=== PATIENT | female | born 1945 | race Caucasian/White ===

== ENCOUNTER 2016-12-22 20:37 | Outpatient (CLI) | payer MEDICARE, OTHER ==
[~2016-12-22] VITALS: Ht 165.1 cm; Wt 87.7 kg
--- NOTE | ~2016-12-22 | HEMODYNAMI ---
PATIENT:NURIA BARAJAS MEDICAL RECORD: [id number] : 41 [id number] AD[facility]ION DATE: 12/22/16 Generatedon:12/23/201616:24 Patient name: NURIA BARAJAS Patient #: [id number] : 1945 Date of study: 12/23/2016 Page: Of Hemodynamic Procedure Report Patient Data Patient Demographics Procedure consent was obtained First Name: NURIA Gender: Female Last Name: KARL : 1945 Middle Initial: A Age: 71 year(s) Patient #: [id number] Race: SSN: [id number] Additional ID: [id number] Contact details Address: [place] [address] State: [place] City: [place] Zip code: [address] Past Medical History Allergies Allergen Reaction Date Comments Reported Iodine 06/12/2015 Sulfa drugs 06/12/2015 Other allergy 06/12/2015 Levaquin Adhesive tape 06/12/2015 Admission Admission Data Admission Date: 12/22/2016 Admission Time: 20:37 Arrival Date: 12/22/2016 Arrival Time: 19:03 Admit Source: Other Insurance Payor: Medicare Weight (lbs.): 193 Weight (kg.): 87.54 Lab Results Lab Result Date: 12/23/2016 Lab Result Time: 0:00 Biochemistry Name Units Result Min Max BUN mg/dl 30 --(----)-* 7 18 Creatinine mg/dl 0.9 --(-*--)-- 0.6 1.3 CBC Name Units Result Min Max Hemoglobin g/dl 11.4 *-(----)-- 13.5 17.5 Procedure Procedure Types Cath Procedure Diagnostic Procedure [facility] w/Coronaries FFR/IVUS Intra-Coronary IVUS Initial PCI Procedure Coronary Stent Initial Miscellaneous Procedures Moderate Sedation up to 30 minutes Procedure Description Procedure Date Procedure Date: 12/23/2016 Procedure Start Time: 16:02 Procedure End Time: 16:20 Procedure Staff Name Function Narinder Aguilera MD Performing Physician Ivet Reardon RT Scrub Delonte Stallings RN Nurse Anel Zuniga RT Monitor Indication Angina Procedure Data Cath Procedure Fluoroscopy Diagnostic fluoroscopy Total fluoroscopy Time: 4.3 time: 4.3 min min Diagnostic fluoroscopy Total fluoroscopy dose: 775 dose: 775 mGy mGy Contrast Material Contrast Material Type Amount (ml) Isovue 370 87 Entry Location Entry Primary Successful Side Size Upsize Upsize Entry Closure Succes sful Closure Location (Fr) 1 (Fr) 2 (Fr) Remarks Device Remarks Femoral Right 5 Fr 6 Fr Exoseal artery Short Estimated blood loss: 5 ml Diagnostic catheters Device Type Used For End Catheter Placement Cordis 5Fr Pigtail LV Angiography Catheter (MP) Cordis 5Fr JL 4.0 Left Coronary Catheter (MP) Angiography Cordis 5Fr 3DRC Catheter Right Coronary (MP) Angiography Procedure Complications No complications Procedure Medications Medication Administration Route Dosage Oxygen NC 2 l/min Lidocaine 2% added to field 20 Heparin Flush Bag added to field 2 bags (1000units/500ml NS) 0.9% NaCl I.V. 100 ml/hr Solumedrol I.V. 125 mg Versed I.V. 2 mg Fentanyl I.V. 50 mcg Heparin Bolus I.V. 4000 units Versed I.V. 2 mg Fentanyl I.V. 50 mcg Versed I.V. 1 mg Fentanyl I.V. 50 mcg Plavix P.O. 75 mg Hemodynamics Rest HGB: 11.4 (g/dl) Heart Rate: 80 (bpm) Pressure Samples Time Site Value (mmHg) Purpose Heart Use Rate(bpm) 16:04 LV 179/11,12 Snapshot 86 Snapshots Pre Cath Intra NCS Post Cath Vital Signs Time Heart Resp SPO2 NIBP (mmHg) Rhythm Pain Sedation Rate (ipm) (%) Status Level (bpm) 15:41:13 86 13 98 162/103(140) NSR 0 (11) 10(A) , No pain 15:46:04 84 10 96 160/95(124) NSR 0 (11) 10(A) , No pain 15:50:24 82 21 96 171/105(147) NSR 0 (11) 10(A) , No pain 15:54:44 82 16 94 161/89(130) NSR 0 (11) 10(A) , No pain 15:59:06 83 15 95 158/91(130) NSR 0 (11) 10(A) , No pain 16:03:24 84 19 96 158/89(133) NSR 0 (11) 10(A) , No pain 16:07:40 80 9 95 143/82(118) NSR 0 (11) 10(A) , No pain 16:11:59 80 10 98 149/78(124) NSR 0 (11) 9(A) , No pain 16:16:06 84 9 89 119/79(114) NSR 0 (11) 9(A) , No pain 16:20:10 85 8 95 122/77(101) NSR 0 (11) 10(A) , No pain Medications Time Medication Route Dose Verified Delivered Reason Notes Effectiveness by by 15:43:44 Oxygen NC 2 Narinder Buffie used for l/min Willy Stallings RN procedure 15:44:52 Lidocaine 2% added 20ml Narinder Narinder for local to vial Willy Aguilera MD anesthetic field 15:44:58 Heparin Flush added 2 Narinder Narinder used for Bag to bags Willy Aguilera MD procedure (1000units/500ml field NS) 15:56:06 0.9% NaCl I.V. 100 Narinder Buffie Per physician ml/hr Willy Stallings RN 15:56:24 Solumedrol I.V. 125 Narinder Buffie Per physician mg Willy Stallings RN 16:02:30 Versed I.V. 2 mg Narinder Buffie for sedation Willy Stallings RN 16:02:35 Fentanyl I.V. 50 Narinder Buffie for sedation mcg Willy Stallings RN 16:08:00 Fentanyl I.V. 50 Narinder Buffie for sedation mcg Willy Stallings RN 16:08:56 Versed I.V. 2 mg Narinder Buffie for sedation Willy Stallings RN 16:11:52 Heparin Bolus I.V. 4000 Narinder Buffie for verifi ed units Willy Stallings RN anticoagulation with dr aguilera 16:15:40 Versed I.V. 1 mg Narinder Buffie for sedation Willy Stallings RN 16:15:44 Fentanyl I.V. 50 Narinder Buffie for sedation mcg Willy Stallings RN 16:23:58 Plavix P.O. 75 mg Narinder Buffie for Tauth MD Stallings RN antiplatelet therapy Procedure Log Time Note 15:15:55 Ivet Reardon RT(R) sent for patient. Start room use. 15:20:06 Informed consent obtained and on chart 15:24:06 Lab Result : BUN 30 mg/dl 15:24:06 Lab Result : Hemoglobin 11.4 g/dl 15:24:06 Lab Result : Creatinine 0.9 mg/dl 15:24:11 Diagnostic Cath Status : Elective 15:24:31 Indication : Angina 15:27: Time tracking: Regular hours 15:27:07 Plan of Care:Hemodynamics will remain stable., Cardiac rhythm will remain stable., Comfort level will be maintained., Respiratory function will remain adequate., Patient/ family verbilizes understanding of procedure., Procedure tolerated without complication., Recovers from procedure without complications.. 15:29:51 Patient received from ED to CCL 2 Alert and oriented. Tansferred to table in Supine position. 15:29:52 Warm blankets applied, and julia hugger turned on for patient comfort. 15:29:53 Correct patient and procedure confirmed by team. 15:29:54 ECG and BP/O2 sat monitors applied to patient. 15:40:02 Baseline sample Acquired. 15:40:02 Vital chart was started 15:40:06 Rhythm: sinus rhythm 15:40:08 Full Disclosure recording started 15:40:19 H&P Date Dictated: 12/23/2016 New H&P dictated by physician.. 15:40:21 Pre-procedure instructions explained to patient. 15:40:21 Pre-op teaching completed and patient verbalized understanding. 15:40:22 Family in waiting room. 15:40:23 Patient NPO since Midnight. 15:40:32 Is the patient allergic to Iodine/contrast media? No. 15:40:34 Was the patient premedicated? No 15:40:35 Is patient on blood thinner?Yes 15:40:45 ACC The patient was administered the following blood thiners within the last 24 hours: ACCPlavix 15:41:08 Patient Weight : 87.54 kg 15:41:53 Patient diabetic? Yes. 15:41:54 If diabetic: On Metformin? Yes 15:41:58 If on Metformin: Last Dose? 12/22/2016 15:42:00 Previous problem with sedation/anesthesia? No ? 15:42:02 Snore? Yes 15:42:02 Sleep apnea? No 15:42:03 Deviated septum? No 15:42:04 Opens mouth fully? Yes 15:42:05 Sticks out tongue? Yes 15:42:07 Airway obstruction? No ? 15:42:09 Dentures? No ? 15:42:12 Pre procedure: right dorsailis pedis pulse 1+ Palpable, but thready & weak; easily obliterated 15:42:15 Patient pain scale 0/10 ?. 15:42:19 IV patent on arrival in left forearm with 0.9% NaCl at [facility]. 15:42:23 Lab results completed and on chart. 15:42:28 Right groin area was prepped with chlora-prep and draped in sterile fashion 15:42:30 Alarms reviewed by R. N. 15:42:30 Sharps counted by scrub and verified by R.N. 15:43:44 Oxygen 2 l/min NC was administered by Delonte Stallings RN; used for procedure; 15:44:52 Lidocaine 2% 20ml vial added to field was administered by Narinder Aguilera MD; for local anesthetic; 15:44:58 Heparin Flush Bag (1000units/500ml NS) 2 bags added to field was administered by Narinder Aguilera MD; used for procedure; 15:52:48 IV infiltrated; restarted in left hand by Delonte Stallings 15:56:06 0.9% NaCl 100 ml/hr I.V. was administered by Delonte Stallings RN; Per physician; 15:56:24 Solumedrol 125 mg I.V. was administered by Delonte Stallings RN; Per physician; 15:59:00 Physician arrived 15:59:01 --------ALL STOP TIME OUT------ 15:59:01 Final Timeout: patient, procedure, and site verified with staff and physician. All members of the team are in agreement. 15:59:03 Right groin site verified by team. 15:59:07 Physical assessment completed. ASA score P 2 - A patient with mild systemic disease as per Narinder Aguilera MD. 15:59:12 Sedation plan: IV Moderate Sedation Versed, Fentanyl 15:59:22 Use device set Femoral Dx 15:59:23 Acist Syringe opened to sterile field. 15:59:24 Bag Decanter opened to sterile field. 15:59:24 Medline Cath Pack opened to sterile field. 15:59:25 Terumo 5Fr [place] Sheath opened to sterile field. 15:59:25 St Abhishek 260cm J .035 wire opened to sterile field. 15:59:27 Acist Hand Control opened to sterile field. 15:59:27 Acist Manifold opened to sterile field. 15:59:28 Diagnostic Infinity 5Fr Multipack catheter opened to sterile field. 15:59:28 Tegaderm 4 x 4 opened to sterile field. 16:02:30 Versed 2 mg I.V. was administered by Delonte Stallings RN; for sedation; 16:02:35 Fentanyl 50 mcg I.V. was administered by Delonte Stallings RN; for sedation; 16:02:47 Procedure started. 16:02:50 Local anesthetic to right femoral artery with Lidocaine 2% by Narinder Aguilera MD.INITIAL ACCESS ONLY 16:03:02 A 5 Fr sheath was inserted into the Right Femoral artery 16:03:21 A Cordis 5Fr Pigtail Catheter (MP) was advanced over the wire and used for LV Angiography. 16:04:15 LV hemodynamics recorded. 16:04:16 LV gram done using DELVALLE 16:04:19 Injector settings: Ml/sec: 5, Volume: 15, 16:04:25 EF : 55 % 16:04:28 Catheter removed. 16:04:41 A Cordis 5Fr JL 4.0 Catheter (MP) was advanced over the wire and used for Left Coronary Angiography. 16:05:11 LCA angiography performed. 16:05:14 Injector settings: Ml/sec: 3, Volume: 6, 16:06:50 Catheter removed. 16:06:56 A Cordis 5Fr 3DRC Catheter (MP) was advanced over the wire and used for Right Coronary Angiography. 16:07:01 RCA angiography performed. 16:07:04 Injector settings: Ml/sec: 3, Volume: 6, 16:07:45 Catheter removed. 16:08:00 Fentanyl 50 mcg I.V. was administered by Delonte Stallings RN; for sedation; 16:08:22 Merit BasixCompak Inflation Kit opened to sterile field. 16:08:23 Terumo 6Fr [place] Sheath opened to sterile field. 16:08:23 Isaacs Whisper J 300cm 0.014 guide wire opened to sterile field. 16:08:29 Proceeding to intervention. 16:08:56 Versed 2 mg I.V. was administered by Delonte Stallings RN; for sedation; 16:09:08 St Abhishek 260cm J .035 wire opened to sterile field. 16:11:24 Medtronic Launcher 6Fr 3DRC guide catheter opened to sterile field. 16:11:37 Sheath upsized to a 6 Fr Short. 16:11:52 Heparin Bolus 4000 units I.V. was administered by Delonte Stallings RN; for anticoagulation; verified with dr aguilera 16:12:03 6 Fr 3drc guide catheter was inserted over the wire 16:12:08 whisper wire advanced. 16:12:14 IVUS catheter advanced over wire. 16:13:06 IVUS pass to RCA lesion performed. 16:15:33 IVUS catheter removed over wire. 16:15:40 Versed 1 mg I.V. was administered by Delonte Stallings RN; for sedation; 16:15:44 Fentanyl 50 mcg I.V. was administered by Delonte Stallings RN; for sedation; 16:16:12 Inflation Number: 1 A EventWithtronic Integrity 3.5 X 18 stent was prepped and advanced across the Prox RCA. The stent was deployed at 13 KENDRICK for 0:10 (min:sec). 16:17:03 Stent catheter was removed intact over wire. 16:17:04 Wire removed. 16:17:04 Guide catheter removed. 16:17:13 Cordis 6Fr Exoseal opened to sterile field. 16:19:07 Sheath removed intact; hemostasis achieved with Exoseal to the Right Femoral artery. 16:19:09 Procedure ended.(Physican Out) 16:19:31 Fluoroscopy time 04.30 minutes. 16:19:35 Flurop Dose total: 775 16:19:35 Fluoroscopy dose: 775 mGy 16:19:43 Contrast amount:Isovue 370 87ml. 16:19:45 Sharps counted by scrub and verified by R.N. 16:19:46 Insertion/operative site no bleeding no hematoma. 16:19:49 Post-op/insertion site Right Femoral artery dressed using a 4 x 4 and Tegaderm. 16:19:51 Post right femoral artery:stable 16:19:53 Post Procedure Pulses reassessed and unchanged 16:19:55 Post procedure rhythm: unchanged. 16:19:58 Estimated blood loss: 5 ml 16:19:59 Post procedure instruction explained to patient.Patient verbalizes understanding. 16:20:00 Patient needs reinforcement of post procedure teaching. 16:20:20 Procedure type changed to Cath procedure, Diagnostic procedure, LHC, LHC w/Coronaries, FFR/IVUS, Intra-Coronary IVUS Initial, PCI procedure, Coronary Stent Initial, Miscellaneous Procedures, Moderate Sedation up to 30 minutes 16:20:22 Procedure and supply charges have been captured, reviewed, submitted and are correct. 16:20:27 Procedure Complication : No complications 16:20:31 Vital chart was stopped 16:20:31 See physician's report for complete and final results. 16:20:34 Report given to Pre/Post Procedure Room. 16:20:38 Patient transfered to Pre/Post Procedure Room with Stretcher. 16:20:43 Procedure ended. 16:20:43 Full Disclosure recording stopped 16:20:50 ACC-PCI Only Patient was given prescriptions, or instructed by Narinder Aguilera MD to start/continue the following medications upon discharge: Plavix 16:20:51 End room use (Document Last) 16:23:58 Plavix 75 mg P.O. was administered by Delonte Stallings RN; for antiplatelet therapy; 16:24:09 [place] Fromberg Eagleye IVUS Catheter opened to sterile field. Intervention Summary Intervention Notes Time ActionType Lesion and Equipment Action# Pressure Duration Attributes Used 16:16:12 Place stent Prox RCA Medtronic 1 13 00:10 Integrity 3.5 X 18 stent Device Usage Item Name Manufacture Quantity Catalog Hospital Part Current Minimal L ot# / Number Charge Number Stock Stock Serial# Code Acist Acist 1 17267 647509 842107 922140 20 Syringe Medical Systems Inc Bag Microtek 1 2002S 365826 54245 570213 5 Aito BV Inc. Medline Cardinal 1 [id number] 746772 82345 073019 5 Calester Terumo 5Fr Terumo 1 QDE122 851689 573061 846300 [address] Abhishek 2 677137 745825 660349 690355 30 260cm J .035 wire Acist Hand Acist 1 93976 544731 567265 347516 5 Control Medical Systems Inc Acist Acist 1 19766 087873 382848 950077 5 [facility] Biosynthetic Technologies Systems Inc Diagnostic Cardinal 1 [id number] 795930 56790 864875 30 Infinity Health 5Fr Multipack catheter Tegaderm 4 3M 1 1626W 796512 449680 977984 5 x 4 Cordis 5Fr Cardinal 1 407594 5 Pigtail Health Catheter (MP) Cordis 5Fr Cardinal 1 813918 5 JL 4.0 Health Catheter (MP) Cordis 5Fr Cardinal 1 608381 5 3DRC Health Catheter (MP) [facility] 1 [id number] 266679 510272 210530 15 L[employer] Medical Inflation Kit Terumo 6Fr Terumo 1 [id number] 546562 950582 694587 40 [place] Sheath Isaacs Isaacs 1 [id number] 134570 994208 647570 5 Whisper J Vascular 300cm 0.014 guide wire Medtronic Medtronic 1 [id number] 286937 573624 070558 1 Launcher 6Fr 3DRC guide catheter Medtronic Medtronic 1 [id number] 478597 814973 1 0 [id number] Integrity 3.5 X 18 stent Cordis 6Fr Cardinal 1 EX600 655755 830367 812471 10 Permabit Technology [facility] 1 [id number] 395643 883357 770939 8 Fromberg Eagleye IVUS Catheter Signature Audit [place] Stage Time Signature Unsigned Intra-Procedure 12/23/2016 Anel Zuniga 4:24:47 PM RT(R) Signatures Monitor : Anel Zuniga RT Signature : Date : Time : [facility] [address], [place] [address]
[2016-12-22 19:45] LABS: BASOPHILS 0.2 % (0.0-2.0); HEMATOCRIT 34.6 % (36.0-48.0); HEMOGLOBIN 11.4 g/dL (12-16); IMMATURE GRANULOCYTES 0.1 % (0-5); LYMPHOCYTES 25.5 % (15-50); MCH 28.2 pg (26.0-34.0); MCHC 32.9 g/dL (31.0-37.0); MCV 85.6 fL (80.0-100.0); MEAN PLATELET VOLUME 9.6 fL (7.4-10.4); MONOCYTES 7.4 % (2-11); NEUTROPHILS 63.8 % (40-80); PLATELET COUNT 298 10x3/uL (130-400); RBC 4.04 10x6/uL (4.00-5.40); RDW 14.8 % (11.5-14.5); WBC 8.3 10x3/uL (4.8-10.8)
[2016-12-22 20:21] LABS: ALT (SGPT) 36 U/L (10-68); CALC OSMOLALITY 291 mosm/kg (275-300); CALCIUM 9.8 mg/dL (8.5-10.1); CARBON DIOXIDE 26.4 mmol/L (21.0-32.0); CHLORIDE - SERUM 98 mmol/L (98-107); CHOLESTEROL, TOTAL 310 mg/dL (0-200); CKMB 2.2 U/L (0.0-3.6); CREATINE KINASE 86 UL (21-215); CREATININE - SERUM 0.9 mg/dL (0.6-1.3); GLUCOSE 248 mg/dL (74-106); HDL CHOLESTEROL 31 mg/dL (32-96); LDL CHOLESTEROL 227 mg/dL (0-100); LDL-HDL RATIO 7.3 ratio (1.5-3.5); POTASSIUM - SERUM 4.4 mmol/L (3.5-5.1); PROTEIN - SERUM 7.6 g/dL (6.4-8.2); SODIUM 139 mmol/L (136-145); TRIGLYCERIDE 264 mg/dL (30-200); TROPONIN-I < 0.017 ng/mL (0.000-0.060); UREA NITROGEN 30 mg/dL (7-18); eGFR NON AFRICAN AMERICAN 65 mL/min (90-120)
[~2016-12-22 20:37] MED LIST: ACIPHEX20 MG PO; ANTIVERT25 MG PO; BAYER CHEWABLE81 MG PO; CARDIZEM CD240 MG PO; CLEOCIN HCL300 MG PO; FISH OIL 1,0001 CA1 PO; GLIMEPIRIDE1 MG PO; GLUCOPHAGE1000 MG PO; HYDROCODONE-APA1 TAB PO; ISORDIL5 MG PO; MACROBID100 MG PO; MAG-OX 400 MG400 MG PO; MEDROL DOSE PACK4 MG PO; NITROSTAT0.4 MG SL; NORCO 10/325 TA1 TA1 PO; ONGLYZA5 MG PO; PLAVIX75 MG PO; PREDNISONE20 MG PO; PROAIR HFA8.5 GM INH; TAZTIA XT360 MG PO; XANAX0.5 MG PO; ZESTORETIC 20/11 TAB PO; ZETIA10 MG PO; ZOFRAN4 MG PO; ZYLOPRIM300 MG PO
[2016-12-22 21:01] LABS: AMYLASE - SERUM 27 U/L (25-115); LIPASE 273 U/L (73-393); PRO BNP 80 pg/mL (0-125)
[2016-12-22 21:04] LABS: ALKALINE PHOSPHATASE 105 U/L (46-116); BILIRUBIN - TOTAL 0.23 mg/dL (0.2-1.3)
[2016-12-23 07:30] VITALS: BP 174/83; Ht 165.1 cm; Wt 87.7 kg
[2016-12-23 07:54] VITALS: BP 137/57
--- NOTE | 2016-12-23 08:00 | NUR ---
PATIENT IS AWAKE AND ALERT, ABLE TO RELAY HER NEEDS. DR. GUEVARA HAS BEEN IN TO SEE HER. SHE HAS ALLERGY TO CONTRAST. WILL PREMEDICATE.
[2016-12-23 10:55] VITALS: BP 166/77
[2016-12-23 13:55] VITALS: BP 174/83
[2016-12-23] MEDS ORDERED: PROTONIX20 MG PO (14:36)
[2016-12-23] MEDS ORDERED: MAG-OX 400 MG400 MG PO (14:38)
[2016-12-23] MEDS ORDERED: FISH OIL 1,0001 CA1 PO (14:38)
[2016-12-23] MEDS ORDERED: GLUCOPHAGE1000 MG PO (14:39)
[2016-12-23] MEDS ORDERED: LEVEMIR100 U/M1 SC (14:39)
[2016-12-23] MEDS ORDERED: FLUTICASONE PRO16 GM NASAL ×2 (14:41)
--- NOTE | 2016-12-23 15:20 | NUR ---
DISCUSSED CONSENT PAPERWORK. PATIENT GIVES CONSENT BUT IS ADAMENT THAT SHE DOESN'T WANT A PACEMAKER.
--- NOTE | 2016-12-23 17:01 | NUR ---
RECEIVED PT FROM WORKFORCE SPECIALIST. NO CO PAIN AT THIS TIME. AOX4. FAMILY AT BEDSIDE.. 78 SR PER MACHINE PRESSER.
--- NOTE | 2016-12-23 19:23 | NUR ---
PT IS ALERT. ASSESSMENT DONE PER FLOWSHEET. NO OTHER NEEDS AT THIS TIME. WILL CONTINUE TO MONTIOR.
[2016-12-23 20:00] VITALS: BP 166/74
[2016-12-24] VITALS: BP 128/60
--- NOTE | 2016-12-24 00:28 | NUR ---
PT SLEEPING. APPEARS COMFORTABLE. NO DISTRESS NOTED. RESP EVEN AND UNLABORED. FAMILY IN ROOM. CALL LIGHT WITH IN REACH. WILL CONT. TO MONITOR.
--- NOTE | 2016-12-24 00:37 | NUR ---
PT AWAKEN BY EXHAUST WORKER FOR VS. NURSE ASSESSED CATH SITE, TO RT GROIN. DRESSING CLEAN DRY AND INTACT. NO S/S OF BLEEDING OR HEMATOMA. RT PEDAL PULSE PALPABLE.
[2016-12-24 04:00] VITALS: BP 145/69
--- NOTE | 2016-12-24 06:31 | NUR ---
PT AMBULATING AROUND ROOM. A/O. DRESSING TO RT GROIN REMAINS WNL. NO S/S OF HEMATOMA OR BLEEDING. PT REQUEST FRESH WATER. PT TO D/C THIS AM AT 0800. PT WAS NOT GIVEN ANY RX THERE IS NOT AN RX ON CHART. NO F/U APPT NOTED. PT STATES SHE DOES NOT REMEMBER SEEING DR. GUEVARA AT ALL SINCE HER HEART CATH.
[2016-12-24 08:17] VITALS: BP 148/67
--- NOTE | 2016-12-24 08:58 | NUR ---
PT IS ALERT. ASSESMENT DONE PER FLOWSHEET. NO OTHER NEEDS AT THIS ITME. WILL CONTINUE EDWIGE ONITOR.
--- NOTE | 2016-12-29 14:38 | OP ---
PATIENT NAME: NURIA BARAJAS MEDICAL RECORD: [id number] :41 LOCATION:[facility] ADMISSION DATE: SURGEON: ANTONIETA GUEVARA MD DATE OF OPERATION: 12/23/2016 PROCEDURES: 1. PTCA stent of the RCA. 2. Intravascular ultrasound of the RCA. 3. Left heart catheterization. 4. Selective coronary angiography. 5. Left ventriculogram. INDICATION: Angina and coronary artery disease. PROCEDURE IN DETAIL: After informed consent was obtained and after a detailed explanation of the risks, benefits as well as alternative therapies. The patient elected to proceed with angiogram and angioplasty. The right femoral area was prepped and draped in normal sterile fashion. The right femoral artery was cannulated via modified Seldinger technique with placement of 6-Frisian sheath. All catheters exchanged through this sheath. FINDINGS: Left ventriculogram was performed in standard 30-degree DELVALLE view, reveals good cardiac wall motion throughout all segments. Overall ejection fraction estimated at 60%. SELECTIVE CORONARY ANGIOGRAPHY: 1. Left main is with no significant angiographic disease. 2. Left anterior descending has moderate irregularities, but no flow-limiting stenosis. Previously placed stents are widely patent. 3. Left circumflex has moderate irregularities, but no flow-limiting stenosis. Previously placed stents were widely patent. 4. Right coronary has an 80% stenosis confirmed by intravascular ultrasound proximally. PTCA STENT OF THE RIGHT CORONARY: The stent used was 3.5 x 18 mm Integrity. Result was 0% residual stenosis. OVERALL IMPRESSION: Successful percutaneous transluminal coronary angioplasty stent of the right coronary artery going from 80% initial stenosis to 0% residual stenosis. TRANSINT:[id number] Voice Confirmation ID: [id number] DOCUMENT ID: [id number] ANTONIETA GUEVARA MD at 1438 CC: [id number] DICTATION DATE: 12/23/16 1620 SALES TRAINING REPRESENTATIVE: 12/24/16 0102 DEP CLI 12/24/16 [id number] [place] [address]
--- NOTE | 2016-12-29 14:38 | HP ---
PATIENT: NURIA PATRICK MEDICAL RECORD: [id number] ACCOUNT: [id number] LOCATION:[facility] : 41 ADMISSION DATE: 12/22/16 HISTORY AND PHYSICAL EXAMINATION DIAGNOSES: 1. Unstable angina. 2. Coronary artery disease. 3. Status post multivessel percutaneous transluminal coronary angioplasty stent. 4. CONTRAST ALLERGY. 5. Hypertension. 6. Hyperlipidemia. HISTORY OF PRESENT ILLNESS: Mrs. Patrick presents with 3 days of increasing anginal chest discomfort. Her troponin is normal. She continues to have the angina. Her last cardiac intervention was 2 years ago. PHYSICAL EXAMINATION: GENERAL APPEARANCE: Well-nourished, well-developed, appears stated age. Level of distress, comfortable. PSYCHIATRIC: Mental status, alert, normal affect. Orientation, oriented to time, place and person. EYES: Lids and conjunctiva, noninjected. No discharge, no pallor. ENT: Lips, teeth, gums, normal dentition. Oropharynx, no cyanosis, no pallor. NECK: Carotid arteries, bilateral normal upstroke, no bruits, no thrills. JUGULAR VEINS: No jugular venous pressure or distention. CERVICAL LYMPH NODES: Nontender, nonenlarged. THYROID: Not enlarged. Nontender. No nodules. LUNGS: Respiratory effort, unlabored. CHEST: Normal curvature. No thoracic deformity. No chest wall tenderness. Percussion, resonant. Auscultation, clear. No wheezes, no rales, no rhonchi. CARDIOVASCULAR: Precordial exam, nondisplaced. No heaves or pericardial thrills. Rate and rhythm, regular. Heart sounds, normal S1, normal S2. No S3, no gallop, no rub. Systolic murmur, not heard. Diastolic murmur, not heard. EXTREMITIES: No cyanosis, no edema. Peripheral pulses, full and equal in all extremities, except as noted. No bruits appreciated. ABDOMEN: Soft, nondistended. Normal aorta. No bruit. Nontender. No masses. Liver, nontender, no hepatomegaly. Spleen, nontender, no splenomegaly. MUSCULOSKELETAL: No joint tenderness. No joint swelling. No erythema. NEUROLOGICAL: Normal gait, normal strength, normal tone. SKIN: Warm and dry. REVIEW OF SYSTEMS: The patient reports easy bruising but reports no swollen glands. The patient reports no fever, no night sweats, no significant weight gain, no significant weight loss. No significant exercise tolerance. The patient reports no dry eyes, no irritation, no vision change. Patient reports no difficulty hearing and no ear pain. Patient reports no frequent nose bleeds or nose and sinus problems. Patient reports on arm pain on exertion. No shortness of breath while lying down. No history of heart murmur. Patient reports no cough, no wheezing or coughing up blood. Patient reports no abdominal pain, no vomiting. Normal appetite. No diarrhea and not vomiting blood. No nausea and no constipation. Patient reports no incontinence. No difficulty urinating. No hematuria. No increased frequency. Patient reports no muscle aches. No weakness, no arthralgias, no back pain. No swelling of the HISTORY AND PHYSICAL [id number] NURIA PATRICK extremities. Patient reports no abnormal mole, no jaundice, no rashes. Reports no loss of consciousness. No weakness and no numbness. No seizures, dizziness, or headaches. The patient reports no depression, no sleep disturbance, feeling safe in a relationship and no alcohol abuse. Patient reports on fatigue. Reports no runny nose or sinus pressure. No itching, no hives, and no frequent sneezing. OVERALL IMPRESSION: Unstable angina, escalating fashion, most likely she has recurrent hemodynamically significant coronary artery disease. We will proceed with coronary angiography. Further care depends upon findings of the chart. TRANSINT:[id number] Voice Confirmation ID: [id number] DOCUMENT ID: [id number] ANTONIETA GUEVARA MD at 1438 CC: [id number] DICTATION DATE: 12/23/16 08 BOTTOM BUFFER: 12/23/16 0851 DEP CLI 12/24/16 [address] [place] [address]
== END 2016-12-24 10:06 | disposition home or self-care (01) ==
LOC: D.OPS 20:37 → D.M2 20:37 → EDSTATUS 12-23 11:30 → D.M2 12-23 16:50 → D.OPS 12-24 10:06
PROVIDERS: Family Medicine
DX: I25.110 Atherosclerotic heart disease of native coronary artery with unstable angina pectoris (principal); I10 Essential (primary) hypertension; E78.5 Hyperlipidemia, unspecified; Z95.5 Presence of coronary angioplasty implant and graft; Z91.041 Radiographic dye allergy status; Z79.899 Other long term (current) drug therapy

== ENCOUNTER 2017-05-17 18:47 | Observation (INO) | payer MEDICARE, OTHER ==
[~2017-05-17] VITALS: Ht 165.1 cm; Wt 83.9 kg
--- NOTE | ~2017-05-17 | EC ---
PATIENT:NURIA BARAJAS DATE OF SERVICE: 05/17/17 SEX: F MEDICAL RECORD: [id number] DATE OF : 41 LOCATION:D. D.212 AGE OF PATIENT: 72 ADMISSION DATE: 05/17/17 REFERRING PHYSICIAN: INTERPRETING PHYSICIAN: ANTONIETA AGUILERA MD ECHOCARDIOGRAM REPORT ECHO CHARGES 4 ECHO COMPLETE CLINICAL DIAGNOSIS: DIZZINESS,CHILLS HX OF CAD/STENTS/HTN ECHOCARDIOGRAPHIC MEASUREMENTS (adult normal given) AC root (d.<3.7cm) 3.5 cm LV Septum d (<1.2 cm> 1.5 cm Valve Excursion 1.6 cm LV Septum (systole) 2.1 cm Left Atria (s.<4.0cm> 4.8 cm LVPW d(<1.2cm) 1.7 cm RV (d.<2.3cm) 4.0 cm LVPW (sytole) 2.0 cm LV diastole(<5.6CM) 5.1 cm MV E-F(>70mm/sec) cm LV systole 4.0 cm LVOT Diameter 1.9 cm MV exc.(>10mm) 1.6 cm Est.ejection fraction (50-75%) % Pericardial Effusion N DOPPLER: LVIT cm/sec A 98.0 cm/sec E 72.0 cm/sec LA cm/sec RVSP 32 mmHg LVOT 130 cm/sec AOP1/2T m/s Asc. Ao 162 cm/sec RVOT 100 cm/sec RA cm/sec PA 127 cm/sec AV Gradient Peak 10.50mmHg AV Mean 4.79 mmHg AV Area 2.6 cm MV Gradient Peak 4.52 mmHg MV Mean 1.42 mmHg MV Area cm COMMENTS: Framing Mechanic: Cristo KERN Brick Pitcher: 1 Dr. Aguilera TAPE# PACS DATE OF SERVICE: 05/18/2017 Echocardiogram FINDINGS: 1. Left ventricular chamber size is within normal limits. Left ventricular systolic function is normal. Overall ejection fraction estimated at 60%. 2. Left atrium is enlarged at 4.8 cm. Right atrium and right ventricular chamber sizes are as well mildly dilated. 3. Valvular structures have normal structure and motion. ECHOCARDIOGRAM REPORT [id number] NURIA BARAJAS 4. Doppler interrogation reveals mild mitral regurgitation, mild tricuspid regurgitation, no other valvular insufficiency or stenosis. Pulmonary systolic pressure is within normal limits, estimated at 32 mmHg. 5. No evidence of pericardial effusion or left ventricular thrombus. TRANSINT:[id number] Voice Confirmation ID: [id number] DOCUMENT ID: [id number] ANTONIETA AGUILERA MD CC: [id number] DICTATION DATE: 05/19/17 1149 CERTIFIED PHARMACIST ASSISTANT: 05/19/17 1425 DIS IN 05/18/17 [facility] [address] [id number]
[~2017-05-17 18:47] MED LIST changes: +FLUTICASONE PRO16 GM NASAL; +LEVEMIR100 U/M1 SC; +PROTONIX20 MG PO
[2017-05-17 19:37] LABS: BASOPHILS 0.3 % (0-2); EOSINOPHILS 5.2 % (0-7); HEMATOCRIT 34.5 % (36.0-48.0); HEMOGLOBIN 11.4 g/dL (12-16); IMMATURE GRANULOCYTES 0.3 % (0-5); LYMPHOCYTES 22.8 % (15-50); MCH 27.9 pg (26.0-34.0); MCV 84.4 fL (80.0-100.0); MEAN PLATELET VOLUME 9.2 fL (7.4-10.4); MONOCYTES 9.1 % (2-11); NEUTROPHILS 62.3 % (40-80); PLATELET COUNT 304 10x3/uL (130-400); RBC 4.09 10x6/uL (4.00-5.40); RDW 14.8 % (11.5-14.5); WBC 7.3 10x3/uL (4.8-10.8)
[2017-05-17 20:25] LABS: ALBUMIN 3.7 g/dL (3.4-5.0); ALKALINE PHOSPHATASE 87 U/L (46-116); ALT (SGPT) 56 U/L (10-68); CALC OSMOLALITY 275 mosm/kg (275-300); CARBON DIOXIDE 30.5 mmol/L (21.0-32.0); CHLORIDE - SERUM 99 mmol/L (98-107); CREATININE - SERUM 0.9 mg/dL (0.6-1.3); POTASSIUM - SERUM 4.1 mmol/L (3.5-5.1); PROTEIN - SERUM 7.4 g/dL (6.4-8.2); SODIUM 135 mmol/L (136-145); UREA NITROGEN 15 mg/dL (7-18); eGFR NON AFRICAN AMERICAN 65 mL/min (90-120)
[2017-05-17 20:35] LABS: GLUCOSE 185 mg/dL (74-106)
[2017-05-17 20:56] LABS: CHOL - HDL RATIO 4.8 ratio (2.3-4.1); CHOLESTEROL, TOTAL 176 mg/dL (0-200); CKMB 3.3 U/L (0.0-3.6); CREATINE KINASE 124 UL (21-215); HDL CHOLESTEROL 37 mg/dL (32-96); LDL CHOLESTEROL 119 mg/dL (0-100); LDL-HDL RATIO 3.2 ratio (1.5-3.5); MAGNESIUM - SERUM 1.8 mg/dL (1.8-2.4); TRIGLYCERIDE 103 mg/dL (30-200)
[2017-05-17 21:01] LABS: TROPONIN-I < 0.017 ng/mL (0.000-0.060)
[2017-05-17 21:15] LABS: APPEARANCE HAZY (CLEAR); BILIRUBIN NEGATIVE (NEGATIVE); COLOR YELLOW (YELLOW); GLUCOSE NEGATIVE (NEGATIVE); KETONE NEGATIVE (NEGATIVE); LEUKOCYTE ESTERASE TRACE (NEGATIVE); NITRITE POSITIVE (NEGATIVE); PROTEIN NEGATIVE (NEGATIVE); UROBILINOGEN NORMAL (NORMAL)
[2017-05-17 21:16] LABS: RED CELLS - URINE OCC /hpf (0-5); WHITE CELLS - URINE 0-5 /hpf (0-5)
[2017-05-17 21:17] LABS: BACTERIA MANY /hpf (NONE SEEN); EPITHELIAL CELLS OCC /hpf (0-5)
--- NOTE | 2017-05-17 22:53 | NUR ---
RECEIVED REPORT FROM ADMANDA IN ER, PT ADMITTED FOR CHEST PAIN-DIZZY-, TELEMTRY PLACED ON PT, IV-RAC, BED IS LOW, SRX2, CALL LIGHT IN REACH, DAUGHTER AT BEDSIDE, VITALS ARE STABLE, WILL CONTINUE TO MONITOR
[2017-05-17 23:07] LABS: CKMB 2.8 U/L (0.0-3.6); CREATINE KINASE 104 UL (21-215)
[2017-05-17 23:09] LABS: TROPONIN-I < 0.017 ng/mL (0.000-0.060)
--- NOTE | 2017-05-17 23:45 | NUR ---
ADMISSION ASSESSMENT COMPLETED. PT RESTING WITH NO DISTRESS.
[2017-05-18 01:36] VITALS: BP 164/99
--- NOTE | 2017-05-18 03:07 | NUR ---
PT RESTING IN ROOM WITH NO DISTRESS. RESPS EVEN/NONLABORED. NO DISTRESS.
--- NOTE | 2017-05-18 04:11 | NUR ---
ASSISTED PT TO RESTROOM, BACK IN BED, DENIES ANY NEEDS, BED IS LOW, SRX2, CALL LIGHT IN REACH, WILL CONTINUE TO MONITOR
[2017-05-18 05:29] VITALS: BP 135/54
[2017-05-18 05:37] LABS: CKMB 1.6 U/L (0.0-3.6); CREATINE KINASE 79 UL (21-215)
[2017-05-18 05:38] LABS: TROPONIN-I < 0.017 ng/mL (0.000-0.060)
[2017-05-18 05:46] VITALS: BP 164/66; BMI 30.8
[2017-05-18 08:21] VITALS: BP 127/55
[2017-05-18 10:05] VITALS: Ht 165.1 cm; Wt 83.9 kg
--- NOTE | 2017-05-18 10:56 | NUR ---
TELEMETRY SR. FERRER NEEDS. CALL LIGHT IN REACH. WILL MONITOR.
[2017-05-18 11:10] LABS: CKMB 1.5 U/L (0.0-3.6); CREATINE KINASE 80 UL (21-215); TROPONIN-I < 0.017 ng/mL (0.000-0.060)
[2017-05-18 12:54] VITALS: BP 135/66
[2017-05-18 16:21] VITALS: BP 125/58
== END 2017-05-18 19:00 | disposition home or self-care (01) ==
LOC: D.ER 18:47 → D.M2 21:58 → OBSVTIME 21:58 → D.M2 22:50
PROVIDERS: Family Medicine; ADMIT Family Medicine
DX: R07.9 Chest pain, unspecified (principal); R42 Dizziness and giddiness; I25.10 Atherosclerotic heart disease of native coronary artery without angina pectoris; Z95.5 Presence of coronary angioplasty implant and graft; E11.9 Type 2 diabetes mellitus without complications; I10 Essential (primary) hypertension; I48.91 Unspecified atrial fibrillation; F41.9 Anxiety disorder, unspecified; Z85.3 Personal history of malignant neoplasm of breast

== ENCOUNTER → 2017-06-25 07:55 | Outpatient (CLI) | payer MEDICARE, OTHER ==
[2017-05-18 10:05] VITALS: BMI 30.7
== END | disposition home or self-care (01) ==
LOC: D.CN 07:55
DX: M79.602 Pain in left arm (principal); M79.601 Pain in right arm

== ENCOUNTER 2017-11-14 17:35 | Emergency (ER) | payer MEDICARE, OTHER ==
[2017-05-18 10:05] VITALS: BMI 30.7
== END 2017-11-14 20:06 | disposition home or self-care (01) ==
LOC: D.ER 17:35
DX: S93.402A Sprain of unspecified ligament of left ankle, initial encounter (principal); X50.1XXA Overexertion from prolonged static or awkward postures, initial encounter; Y93.89 Activity, other specified; Y92.019 Unspecified place in single-family (private) house as the place of occurrence of the external cause; I10 Essential (primary) hypertension; E11.9 Type 2 diabetes mellitus without complications; Z85.3 Personal history of malignant neoplasm of breast

== ENCOUNTER 2018-02-14 20:19 | Emergency (ER) | payer MEDICARE, OTHER ==
[2017-05-18 10:05] VITALS: BMI 30.7
== END 2018-02-14 23:50 | disposition home or self-care (01) ==
LOC: D.ER 20:19
DX: S40.011A Contusion of right shoulder, initial encounter (principal); S70.01XA Contusion of right hip, initial encounter; W01.0XXA Fall on same level from slipping, tripping and stumbling without subsequent striking against object, initial encounter; Y93.89 Activity, other specified; Y92.019 Unspecified place in single-family (private) house as the place of occurrence of the external cause; K21.9 Gastro-esophageal reflux disease without esophagitis; I10 Essential (primary) hypertension; E11.9 Type 2 diabetes mellitus without complications; Z85.3 Personal history of malignant neoplasm of breast; Z86.79 Personal history of other diseases of the circulatory system

== ENCOUNTER 2018-08-14 14:41 | Emergency (ER) | payer MEDICARE, OTHER ==
[~2018-08-14] VITALS: Ht 165.1 cm; Wt 84.1 kg
[2018-08-14 14:45] VITALS: Ht 165.1 cm; Wt 84.1 kg
[2018-08-14 15:01] LABS: APPEARANCE CLEAR (CLEAR); COLOR YELLOW (YELLOW); NITRITE POSITIVE (NEGATIVE); PROTEIN NEGATIVE (NEGATIVE)
[2018-08-14 15:02] LABS: BILIRUBIN NEGATIVE (NEGATIVE); GLUCOSE 1000 mg/dL (NEGATIVE); KETONE NEGATIVE (NEGATIVE); UROBILINOGEN NORMAL (NORMAL)
[2018-08-14 15:03] LABS: BACTERIA MANY /hpf (NONE SEEN); EPITHELIAL CELLS 0-5 /hpf (0-5); RED CELLS - URINE 0-5 /hpf (0-5); WHITE CELLS - URINE 0-5 /hpf (0-5)
[2018-08-14 15:13] LABS: BASOPHILS 0.2 % (0-2); EOSINOPHILS 5.3 % (0-7); HEMATOCRIT 36.5 % (36.0-48.0); HEMOGLOBIN 12.1 g/dL (12-16); IMMATURE GRANULOCYTES 0.4 % (0-5); LYMPHOCYTES 14.9 % (15-50); MCH 28.8 pg (26.0-34.0); MCHC 33.2 g/dL (31.0-37.0); MCV 86.9 fL (80.0-100.0); MEAN PLATELET VOLUME 9.5 fL (7.4-10.4); MONOCYTES 10.2 % (2-11); PLATELET COUNT 310 10x3/uL (130-400); RDW 14.7 % (11.5-14.5); WBC 11.1 10x3/uL (4.8-10.8)
[2018-08-14 15:41] LABS: ALBUMIN 3.4 g/dL (3.4-5.0); ANION GAP 13.8 mmol/L (8-16); BILIRUBIN - TOTAL 0.38 mg/dL (0.2-1.3); CALCIUM 9.3 mg/dL (8.5-10.1); CARBON DIOXIDE 25.7 mmol/L (21.0-32.0); CREATININE - SERUM 0.9 mg/dL (0.6-1.3); POTASSIUM - SERUM 4.5 mmol/L (3.5-5.1)
[2018-08-14] MEDS ORDERED: MACROBID100 MG PO (16:36)
[2018-08-14 17:25] VITALS: BP 155/74
== END 2018-08-14 17:26 | disposition home or self-care (01) ==
LOC: D.ER 14:41
PROVIDERS: Family Medicine
DX: N39.0 Urinary tract infection, site not specified (principal); E11.9 Type 2 diabetes mellitus without complications; I10 Essential (primary) hypertension

== ENCOUNTER 2018-10-02 13:19 | Observation (INO) | payer MEDICARE, OTHER ==
[~2018-10-02] VITALS: Ht 165.1 cm; Wt 85.0 kg
[2018-10-02] VITALS (8 sets, daily range): BP systolic 115–139; BP diastolic 66–90; BMI 31.3
--- NOTE | ~2018-10-02 | EC ---
PATIENT:NURIA BARAJAS DATE OF SERVICE: 10/02/18 SEX: F MEDICAL RECORD: [id number] DATE OF : 41 LOCATION:D.M2 D.212 AGE OF PATIENT: 73 ADMISSION DATE: 10/02/18 REFERRING PHYSICIAN: INTERPRETING PHYSICIAN: ANTONIETA AGUILERA MD ECHOCARDIOGRAM REPORT ECHO CHARGES 4 ECHO COMPLETE Date: 10/03/18 CLINICAL DIAGNOSIS: CP ECHOCARDIOGRAPHIC MEASUREMENTS (adult normal given) AC root (d.<3.7cm) 3.2 cm LV Septum d (<1.2 cm> 1.4 cm Valve Excursion 1.9 cm LV Septum (systole) 1.6 cm Left Atria (s.<4.0cm> 4.0 cm LVPW d(<1.2cm) 0.9 cm RV (d.<2.3cm) 3.2 cm LVPW (sytole) 1.3 cm LV diastole(<5.6CM) 5.4 cm MV E-F(>70mm/sec) cm LV systole 4.9 cm LVOT Diameter 2.1 cm MV exc.(>10mm) cm Est.ejection fraction (50-75%) % DOPPLER: LVIT cm/sec A 113 cm/sec E 63 cm/sec LA cm/sec RVSP 22.0 mmHg LVOT 110 cm/sec AOP1/2T m/s Asc. Ao 192 cm/sec RVOT 108 cm/sec RA cm/sec PA 126 cm/sec AV Gradient Peak 14.8 mmHg AV Mean 6.9 mmHg AV Area 2.2 cm MV Gradient Peak 4.7 mmHg MV Mean 2.1 mmHg MV Area cm COMMENTS: Hydraulic Plumber: Jennifer [facility] Structurer: 1 Dr. Aguilera TAPE# PACS Pericardial Effusion N DATE OF SERVICE: 10/03/2018 Echocardiogram FINDINGS: 1. Left ventricular chamber size is within normal limits. Left ventricular systolic function is normal. Overall ejection fraction estimated at 65%. 2. Left atrium, right atrium, and right ventricle chamber sizes are within normal limits. 3. Valvular structures have normal structure and motion. ECHOCARDIOGRAM REPORT [id number] NURIA BARAJAS 4. Doppler interrogation reveals trace tricuspid regurgitation. No other valvular insufficiency or stenosis. Pulmonary systolic pressure is normal estimated at 22 mmHg. 5. No evidence of pericardial effusion or left ventricular thrombus. TRANSINT:[id number] Voice Confirmation ID: [id number] DOCUMENT ID: [id number] ANTONIETA AGUILERA MD CC: [id number] DICTATION DATE: 10/03/18 1647 YARD ATTENDANT: 10/03/18 2353 ADM IN [address] [place] [address]
--- NOTE | ~2018-10-02 | HEMODYNAMI ---
PATIENT:NURIA BARAJAS MEDICAL RECORD: [id number] : 41 LOCATION:[facility] D.2123 [facility]# [id number] ADMISSION DATE: 10/02/18 Generatedon:10/03/201817:11 Patient name: NURIA BARAJAS Patient #: [id number] : 1945 Date of study: 10/03/2018 Page: Of Hemodynamic Procedure Report Patient Data Patient Demographics Procedure consent was obtained First Name: NURIA Gender: Female Last Name: KARL : 1945 [facility] Initial: A Age: 73 year(s) Patient #: [id number] Race: SSN: [id number] Additional ID: [id number] Contact details Address: [address] [address] State: [place] City: [place] Zip code: [address] Past Medical History Allergies Allergen Reaction Date Comments Reported Iodine 06/12/2015 Sulfa drugs 06/12/2015 Other allergy 06/12/2015 Levaquin Adhesive tape 06/12/2015 Admission Admission Data Admission Date: 10/02/2018 Admission Time: 16:06 Room #: D.2123 Procedure Procedure Types Cath Procedure Diagnostic Procedure [facility] w/Coronaries Sedation Charges Moderate Sedation up to 15 minutes PCI Procedure Coronary Stent Coronary Stent Initial Procedure Description Procedure Date Procedure Date: 10/03/2018 Procedure Start Time: 16:52 Procedure End Time: 17:07 Procedure Staff Name Function Narinder Aguilera MD Performing Physician Delonte Stallings RN Nurse Anel Zuniga RT Monitor Nancy Burdick RT Scrub Procedure Data Cath Procedure Fluoroscopy Diagnostic fluoroscopy Total fluoroscopy Time: 5.3 time: 5.3 min min Diagnostic fluoroscopy Total fluoroscopy dose: 779 dose: 779 mGy mGy Contrast Material Contrast Material Type Amount (ml) Isovue 300 107 Entry Location Entry Primary Successful Side Size Upsize Upsize Entry Closure Succes sful Closure Location (Fr) 1 (Fr) 2 (Fr) Remarks Device Remarks Femoral Right 5 Fr 6 Fr Exoseal artery Short Estimated blood loss: 5 ml Diagnostic catheters Device Type Used For End Catheter Placement MULTIPACK Pigtail 5 Fr LV Angiography catheter MULTIPACK JL 4.0 5Fr Left Coronary catheter Angiography MULTIPACK 3DRC 5Fr Right Coronary catheter Angiography Procedure Complications No complications Procedure Medications Medication Administration Route Dosage Oxygen etCO2 Nasal cannula 2 l/min Lidocaine 2% added to field 20 Heparin Flush Bag added to field 2 bags (1000units/500ml NS) 0.9% NaCl I.V. 100 ml/hr Versed I.V. 2 mg Fentanyl I.V. 50 mcg Heparin Bolus I.V. 4000 units Plavix P.O. 75 mg Versed I.V. 1 mg Fentanyl I.V. 50 mcg Versed I.V. 1 mg Fentanyl I.V. 25 mcg Hemodynamics Rest Heart Rate: 80 (bpm) Pressure Samples Time Site Value (mmHg) Purpose Heart Use Rate(bpm) 16:54 LV 136/4,-7 Snapshot 74 Snapshots Pre Cath Intra NCS Post Cath Vital Signs Time Heart Resp SPO2 etCO2 NIBP (mmHg) Rhythm Pain Sedation Rate (ipm) (%) (mmHg) Status Level (bpm) 16:39:51 77 22 96 0 162/71(87) NSR 0 (11) 10(A) , No pain 16:44:12 76 18 92 0 166/82(128) NSR 0 (11) 10(A) , No pain 16:48:32 63 19 94 0 142/70(95) NSR 0 (11) 10(A) , No pain 16:52:50 74 12 93 0 133/71(115) NSR 0 (11) 9(A) , No pain 16:57:04 71 12 93 0 147/71(117) NSR 0 (11) 9(A) , No pain 17:01:22 73 12 95 0 146/73(108) NSR 0 (11) 9(A) , No pain 17:05:42 76 11 93 0 125/61(94) NSR 0 (11) 10(A) , No pain Medications Time Medication Route Dose Verified Delivered Reason Notes Effectiveness by by 16:40:46 Plavix P.O. 75 mg Narinder Martel for Willy Stallings RN antiplatelet therapy 16:42:25 Oxygen etCO2 2 Narinder Martel used for Nasal l/min Willy Stallings RN procedure cannula 16:42:33 Lidocaine 2% added 20ml Narinder Narinder for local to vial Willy Aguilera MD anesthetic field 16:42:40 Heparin Flush added 2 Narinder Narinder used for Bag to bags Willy Aguilera MD procedure (1000units/500ml field NS) 16:42:50 0.9% NaCl I.V. 100 Narinder Buffie Per physician ml/hr Willy Stallings RN 16:49:08 Versed I.V. 2 mg Narinder Buffie for sedation Willy Stallings RN 16:49:14 Fentanyl I.V. 50 Narinder Buffie for sedation mcg Willy Stallings RN 16:53:03 Versed I.V. 1 mg Narinder Buffie for sedation Willy Stallings RN 16:53:10 Fentanyl I.V. 50 Narinder Buffie for sedation mcg Willy Stallings RN 16:59:00 Heparin Bolus I.V. 4000 Narinder Sylvesterie for verif ied units Willy Stallings RN anticoagulation with dr aguilera 17:01:55 Versed I.V. 1 mg Narinder Buffie for sedation Willy Stallings RN 17:02:59 Fentanyl I.V. 25 Narinder Buffie for sedation mcg Willy tSallings RN Procedure Log Time Note 15:47:00 Time tracking: Call back (After hours or weekends) 15:47:10 Plan of Care:Hemodynamics will remain stable., Cardiac rhythm will remain stable., Comfort level will be maintained., Respiratory function will remain adequate., Patient/ family verbilizes understanding of procedure., Procedure tolerated without complication., Recovers from procedure without complications.. 16:19:22 Nancy Counts RT(R) sent for patient. Start room use. 16:36:16 Patient received from Med II to CCL 2 Alert and oriented. Tansferred to table in Supine position. 16:36:17 Warm blankets applied, and julia hugger turned on for patient comfort. 16:36:18 Correct patient and procedure confirmed by team. 16:36:19 Signed procedure consent form obtained from patient. 16:36:20 ECG and BP/O2 sat monitors applied to patient. 16:38:34 Vital chart was started 16:38:35 Full Disclosure recording started 16:40:46 Plavix 75 mg P.O. was administered by Delonte Stallings RN; for antiplatelet therapy; 16:42:25 Oxygen 2 l/min etCO2 Nasal cannula was administered by Delonte Stallings RN; used for procedure; 16:42:33 Lidocaine 2% 20ml vial added to field was administered by Narinder Aguilera MD; for local anesthetic; 16:42:40 Heparin Flush Bag (1000units/500ml NS) 2 bags added to field was administered by Narinder Aguilera MD; used for procedure; 16:42:50 0.9% NaCl 100 ml/hr I.V. was administered by Delonte Stallings RN; Per physician; 16:43:58 Baseline sample Acquired. 16:44:01 Rhythm: sinus rhythm 16:44:09 H&P Date Dictated: 10/03/2018 New H&P dictated by physician.. 16:44:11 Pre-procedure instructions explained to patient. 16:44:12 Pre-op teaching completed and patient verbalized understanding. 16:44:13 Family in waiting room. 16:44:15 Patient NPO since Midnight. 16:44:17 Is the patient allergic to Iodine/contrast media? Yes. 16:44:17 Was the patient premedicated? Yes 16:45:14 Is patient on blood thinner?Yes 16:45:19 ACC The patient was administered the following blood thiners within the last 24 hours: ACCPlavix 16:45:20 Patient diabetic? Yes. 16:45:21 If diabetic: On Metformin? No 16:45:24 Previous problem with sedation/anesthesia? No ? 16:45:25 Snore? Yes 16:45:26 Sleep apnea? No 16:45:27 Deviated septum? No 16:45:28 Opens mouth fully? Yes 16:45:29 Sticks out tongue? Yes 16:45:32 Airway obstruction? Yes copd 16:45:35 Dentures? No ? 16:45:40 Pre procedure: right dorsailis pedis pulse 2+ Normal; easily identifiable; not easily obliterated 16:45:42 Pre procedure: left dorsailis pedis pulse 2+ Normal; easily identifiable; not easily obliterated 16:45:44 Patient pain scale 0/10 ?. 16:45:50 IV patent on arrival in left forearm with 0.9% [facility] at [facility]. 16:45:54 Lab results completed and on chart. 16:45:58 Right groin area was prepped with chlora-prep and draped in sterile fashion 16:45:59 Alarms reviewed by R. N. 16:46:00 Sharps counted by scrub and verified by R.N. 16:46:03 Physician arrived 16:46:04 --------ALL STOP TIME OUT------ 16:46:04 Final Timeout: patient, procedure, and site verified with staff and physician. All members of the team are in agreement. 16:46:06 Right groin site verified by team. 16:46:10 Physical assessment completed. ASA score P 2 - A patient with mild systemic disease as per Narinder Aguilera MD. 16:46:14 Sedation plan: IV Moderate Sedation Medication:Versed, Fentanyl 16:48:02 Use device set Femoral Dx 16:48:03 ACIST Syringe (09606) opened to sterile field. 16:48:04 Bag Decanter (2002S) opened to sterile field. 16:48:04 Medline Cath Pack ([id number]) opened to sterile field. 16:48:05 DIAGNOSTIC WIRE .035 260cm J wire (923852) opened to sterile field. 16:48:06 ACIST Hand Control (46130) opened to sterile field. 16:48:07 ACIST Manifold (60678) opened to sterile field. 16:48:08 DIAGNOSTIC Multipack 5Fr catheter set (OU7719) opened to sterile field. 16:48:08 Tegaderm 4 x 4 (1626W) opened to sterile field. 16:48:21 SHEATH 5FR [place] (LMO459) opened to sterile field. 16:49:08 Versed 2 mg I.V. was administered by Delonte Stallings RN; for sedation; 16:49:14 Fentanyl 50 mcg I.V. was administered by Delonte Stallings RN; for sedation; 16:50:22 Zero performed for pressure channel P1 16:50:30 Zero performed for pressure channel P1 16:51:00 Procedure started. 16:52:29 Local anesthetic to right femoral artery with Lidocaine 2% by Narinder Aguilera MD.INITIAL ACCESS ONLY 16:52:30 A 5 Fr sheath was inserted into the Right Femoral artery 16:53:03 Versed 1 mg I.V. was administered by Delonte Stallings RN; for sedation; 16:53:10 Fentanyl 50 mcg I.V. was administered by Delonte Stallings RN; for sedation; 16:53:43 A MULTIPACK Pigtail 5 Fr catheter was advanced over the wire and used for LV Angiography. 16:54:56 LV hemodynamics recorded. 16:55:09 LV gram done using DELVALLE 16:55:11 Injector settings: Ml/sec: 5, Volume: 15, 16:55:16 EF : 60 % 16:55:24 Catheter removed. 16:55:30 A MULTIPACK JL 4.0 5Fr catheter was advanced over the wire and used for Left Coronary Angiography. 16:55:39 LCA angiography performed. 16:55:42 Injector settings: Ml/sec: 3, Volume: 6, 16:56:26 Catheter removed. 16:56:31 A MULTIPACK 3DRC 5Fr catheter was advanced over the wire and used for Right Coronary Angiography. 16:56:58 RCA angiography performed. 16:57:01 Injector settings: Ml/sec: 3, Volume: 6, 16:57:37 CHOICE PT Extra Support 182cm wire ([id number]) opened to sterile field. 16:57:39 INFLATOR Merit BasixCompak (PJ4614) opened to sterile field. 16:57:40 SHEATH 6FR [place] (MHD870) opened to sterile field. 16:57:46 GUIDE 6FR XBLAD 3.5 SH catheter ([id number]) opened to sterile field. 16:59:00 Heparin Bolus 4000 units I.V. was administered by Delonte Stallings RN; for anticoagulation; verified with dr aguilera 16:59:21 Catheter removed. 16:59:21 Proceeding to intervention. 17:00:10 Sheath upsized to a 6 Fr Short. 17:00:18 6 Fr xblad 3.5 sh guide catheter was inserted over the wire 17:00:24 choice tpt wire advanced. 17:00:25 Wire advanced across lesion. 17:01:55 Versed 1 mg I.V. was administered by Delonte Stallings RN; for sedation; 17:02:59 Fentanyl 25 mcg I.V. was administered by Delonte Stallings RN; for sedation; 17:04:46 Place stent Inflation Number: 1 A SHILPA RX 2.5 x 15 stent ([id number]) was prepped and advanced across the Mid LAD. The stent was deployed at 13 KENDRICK for 0:10 (min:sec). 17:05:31 Stent catheter was removed intact over wire. 17:05:32 Wire removed. 17:05:32 Guide catheter removed. 17:05:40 EXOSEAL 6Fr (EX600) opened to sterile field. 17:05:51 Sheath removed intact; hemostasis achieved with Exoseal to the Right Femoral artery. 17:06:03 Procedure ended.(Physican Out) 17:06:20 Fluoroscopy time 05.30 minutes. 17:06:23 Fluoroscopy dose: 779 mGy 17:06:23 Flurop Dose total: 779 17:06:27 Contrast amount:Isovue 300 107ml. 17:06:29 Sharps counted by scrub and verified by R.N. 17:06:30 Insertion/operative site no bleeding no hematoma. 17:06:32 Post-op/insertion site Right Femoral artery dressed using a 4 x 4 and Tegaderm. 17:06:37 Post right femoral artery:stable 17:06:38 Post Procedure Pulses reassessed and unchanged 17:06:41 Post procedure rhythm: unchanged. 17:06:43 Estimated blood loss: 5 ml 17:06:45 Post procedure instruction explained to patient.Patient verbalizes understanding. 17:06:45 Patient needs reinforcement of post procedure teaching. 17:07:11 Procedure type changed to Cath procedure, Diagnostic procedure, LHC, LHC w/Coronaries, Sedation Charges, Moderate Sedation up to 15 minutes, PCI procedure, Coronary Stent, Coronary Stent Initial 17:07:12 Procedure and supply charges have been captured, reviewed, submitted and are correct. 17:07:16 Procedure Complication : No complications 17:07:18 Vital chart was stopped 17:07:18 See physician's report for complete and final results. 17:07:22 Report given to [facility] II. 17:07:25 Patient transfered to Med II with Stretcher. 17:07:27 Procedure ended. 17:07:27 Full Disclosure recording stopped 17:07:34 ACC-PCI Only Patient was given prescriptions, or instructed by Narinder Aguilera MD to start/continue the following medications upon discharge: Plavix 17:07:35 End room use (Document Last) Intervention Summary Intervention Notes Time ActionType Lesion and Equipment Used Action# Pressure Duration Attributes 17:04:46 Place stent Mid LAD SHILPA RX 2.5 x 1 13 00:10 15 stent ([id number]) Device Usage Item Name Manufacture Quantity Catalog Number Hospital Part Current M inimal Lot# / Charge Number Stock Stock Serial# Code ACIST Syringe Acist 1 49117 547751 528160 899350 2 0 (07230) Medical Systems Inc Bag Decanter Microtek 1 358472 50635 416039 5 () Medical Inc. Medline Cath Medline 1 [id number] 426987 35997 311139 5 Pack ([id number]) DIAGNOSTIC St Abhishek 1 756456 654532 260991 349886 3 0 WIRE .035 260cm J wire (411285) ACIST Hand Acist 1 08902 306304 955622 753130 5 Control Medical (70731) Systems Inc ACIST Manifold Acist 1 76151 620926 231817 511555 5 (27745) Medical Systems Inc DIAGNOSTIC Cardinal 1 RE8891 259992 15824 488633 3 0 Multipack 5Fr Health catheter set (MX2796) Tegaderm 4 x 4 3M 1 1626W 344192 102857 182430 5 (1626W) SHEATH 5FR Terumo 1 NWM037 416242 857153 928148 5 [place] (EUH051) MULTIPACK Cardinal 1 343156 5 Pigtail 5 Fr Health catheter MULTIPACK JL Cardinal 1 041546 5 4.0 5Fr Health catheter MULTIPACK 3DRC Cardinal 1 752880 5 5Fr catheter Health CHOICE PT [place] 1 [id number] 895657 210197 144920 5 Extra Support Scientific 182cm wire ([id number]) INFLATOR Merit Merit 1 JS3166 304226 420410 374772 1 5 [employer] Medical (WV9252) SHEATH 6FR Terumo 1 OLZ252 579137 291816 967341 4 0 [place] (UMX928) GUIDE 6FR Cardinal 1 [id number] 543634 381908 180397 3 XBLAD 3.5 SH Health catheter ([id number]) SHILPA RX 2.5 x Medtronic 1 [id number] 070145 3312233 503678 5 [id number] 15 stent ([id number]) EXOSEAL 6Fr Cardinal 1 EX600 247912 168435 205838 1 0 (EX600) Health Signature Audit [place] Stage Time Signature Unsigned Intra-Procedure 10/03/2018 Anel Zuniga 5:10:56 PM RT(R) Signatures Monitor : Anel Zuniga RT Signature : Date : Time : [address] [place] [address]
--- NOTE | ~2018-10-02 | OP ---
PATIENT NAME: NURIA BARAJAS MEDICAL RECORD: [id number] :41 LOCATION:D.M2 D.2123 ADMISSION DATE:10/02/18 SURGEON: ANTONIETA GUEVARA MD DATE OF OPERATION: 10/03/2018 PROCEDURES: 1. PTCA stent LAD. 2. Left heart catheterization. 3. Selective coronary angiography. 4. Left ventriculogram. INDICATION: Unstable angina and coronary artery disease. PROCEDURE IN DETAIL: After informed consent was obtained and after a detailed description of the risks, benefits as well as alternative therapies, the patient elected to proceed with angiogram and angioplasty. The right femoral area was prepped and draped in normal sterile fashion. Right femoral artery was cannulated via modified Seldinger technique with placement of 6-Chinese sheath. All catheters exchanged through this sheath. FINDINGS: Left ventriculogram was performed in standard 30-degree DELVALLE view, reveals good cardiac wall motion throughout all segments. Overall ejection fraction estimated at 60%. SELECTIVE CORONARY ANGIOGRAPHY: 1. Left main is with no significant angiographic disease. 2. Left anterior descending has 90% stenosis in the proximal vessel. 3. Left circumflex has previously placed stents, these are widely patent with no significant restenosis. No disease elsewise throughout the circumflex or its branches. 4. Right coronary has moderate irregularities, but no flow-limiting stenosis. PTCA STENT OF THE LAD: The stent used was a 2.5 x 15 mm Frannie. Result was 0% residual stenosis. OVERALL IMPRESSION: Successful percutaneous transluminal coronary angioplasty stent of the left anterior descending going from 90% initial stenosis to 0% residual. TRANSINT:[id number] Voice Confirmation ID: [id number] DOCUMENT ID: [id number] ANTONIETA GUEVARA MD CC: [id number] DICTATION DATE: 10/03/18 1717 GEOLOGICAL ENGINEER: 10/04/18 0010 ADM IN [address] [place] [address]
[~2018-10-02 13:19] MED LIST changes: +LEVEMIR IN100 UNITS/ SC; -LEVEMIR100 U/M1 SC
[2018-10-02] MEDS ORDERED: ZOFRAN4 MG PO (13:28)
[2018-10-02] MEDS ORDERED: ZYRTEC10 MG PO (13:29)
[2018-10-02] MEDS ORDERED: CLEOCIN HCL300 MG PO (13:31)
[2018-10-02] MEDS ORDERED: PRALUENT P75 MG/1 ML (13:32)
[2018-10-02 14:28] LABS: BASOPHILS 0.4 % (0-2); EOSINOPHILS 5.4 % (0-7); HEMATOCRIT 37.2 % (36.0-48.0); HEMOGLOBIN 12.3 g/dL (12-16); IMMATURE GRANULOCYTES 0.4 % (0-5); LYMPHOCYTES 20.1 % (15-50); MCH 28.6 pg (26.0-34.0); MCHC 33.1 g/dL (31.0-37.0); MCV 86.5 fL (80.0-100.0); MONOCYTES 9.5 % (2-11); NEUTROPHILS 64.2 % (40-80); PLATELET COUNT 319 10x3/uL (130-400); RDW 14.7 % (11.5-14.5); WBC 9.2 10x3/uL (4.8-10.8)
[2018-10-02 14:43] LABS: INR 1.02 (0.85-1.17); PROTIME 12.9 SECONDS (11.6-15.0)
[2018-10-02 14:53] LABS: ALBUMIN 3.4 g/dL (3.4-5.0); ALKALINE PHOSPHATASE 76 U/L (46-116); ALT (SGPT) 50 U/L (10-68); BILIRUBIN - TOTAL 0.38 mg/dL (0.2-1.3); CALC OSMOLALITY 283 mosm/kg (275-300); CARBON DIOXIDE 23.6 mmol/L (21.0-32.0); CHLORIDE - SERUM 100 mmol/L (98-107); CREATININE - SERUM 0.9 mg/dL (0.6-1.3); GLUCOSE 254 mg/dL (74-106); POTASSIUM - SERUM 4.3 mmol/L (3.5-5.1); PROTEIN - SERUM 6.8 g/dL (6.4-8.2); SODIUM 137 mmol/L (136-145); UREA NITROGEN 15 mg/dL (7-18); eGFR NON AFRICAN AMERICAN 65 mL/min (90-120)
[2018-10-02 15:08] LABS: CREATINE KINASE 52 UL (21-215); MAGNESIUM - SERUM 1.6 mg/dL (1.8-2.4); TROPONIN-I < 0.017 ng/mL (0.000-0.060)
[2018-10-02] MEDS ORDERED: VENTOLIN HFA18 GM INH (18:54)
[2018-10-03 00:45] VITALS: BP 127/47
[2018-10-03 02:53] LABS: BASOPHILS 0.2 % (0-2); EOSINOPHILS 5.5 % (0-7); HEMATOCRIT 33.9 % (36.0-48.0); HEMOGLOBIN 11.1 g/dL (12-16); IMMATURE GRANULOCYTES 0.1 % (0-5); LYMPHOCYTES 21.9 % (15-50); MCH 28.5 pg (26.0-34.0); MCHC 32.7 g/dL (31.0-37.0); MCV 86.9 fL (80.0-100.0); MEAN PLATELET VOLUME 9.5 fL (7.4-10.4); MONOCYTES 12.4 % (2-11); NEUTROPHILS 59.9 % (40-80); PLATELET COUNT 286 10x3/uL (130-400); RDW 14.7 % (11.5-14.5)
[2018-10-03 02:57] LABS: INR 1.04 (0.85-1.17); PROTIME 13.1 SECONDS (11.6-15.0)
[2018-10-03 03:08] LABS: ANION GAP 13.3 mmol/L (8-16); CALCIUM 8.5 mg/dL (8.5-10.1); CARBON DIOXIDE 26.1 mmol/L (21.0-32.0); CREATININE - SERUM 1.1 mg/dL (0.6-1.3); POTASSIUM - SERUM 4.4 mmol/L (3.5-5.1); TROPONIN-I 0.023 ng/mL (0.000-0.060)
[2018-10-03 04:25] VITALS: BP 120/52
[2018-10-03 08:52] VITALS: BP 146/68
[2018-10-03 12:13] VITALS: Ht 165.1 cm; Wt 85.0 kg
[2018-10-03 12:32] VITALS: BP 128/58
[2018-10-03 16:42] VITALS: BP 128/58
[2018-10-03 19:00] VITALS: BP 144/75
[2018-10-04] VITALS: BP 132/60
[2018-10-04 05:36] VITALS: BP 138/60
[2018-10-04 07:36] VITALS: BP 179/53
--- NOTE | 2018-10-05 07:07 | MORECARE ---
CASE MANAGEMENT DISCHARGE SUMMARY PATIENT: NURIA BARAJAS UNIT: [id number] ADM DATE: 10/02/18 AGE: 73 : 43 SEX: F ROOM/BED: D.8363 AUTHOR: TYLOR BAILEY PHYSICIAN: REFERRING PHYSICIAN: ANTONIETA GUEVARA MD DATE OF SERVICE: 10/05/18 Discharge Plan Patient Name: NURIA BARAJAS [facility] [facility] 1945 Planned Disposition: Home Anticipated Discharge Date: 10/04/18 Discharge Date: 10/04/2018 Expected LOS: 2 Initial Reviewer: [email or web address] Initial Review Date: 10/05/2018 Generated: 10/05/18 8:07 am Patient Name: NURIA BARAJAS Page 20922 at 0707 All edits/amendments must be made on the electronic document DICTATION DATE: 10/05/18705 SLAGGER: ANDREAS 10/05/18705 RPT#: [id number] DC DATE:10/04/18 STATUS: DIS IN [facility] [address] [facility] [address] END OF REPORT
== END 2018-10-04 10:07 | disposition home or self-care (01) ==
LOC: D.ER 13:19 → OBSVTIME 16:06 → D.M2 16:06
PROVIDERS: Family Medicine; ADMIT Internal Medicine Interventional Cardiology
DX: I25.110 Atherosclerotic heart disease of native coronary artery with unstable angina pectoris (principal); E11.9 Type 2 diabetes mellitus without complications; I10 Essential (primary) hypertension; Z86.73 Personal history of transient ischemic attack (TIA), and cerebral infarction without residual deficits; F41.9 Anxiety disorder, unspecified; I48.0 Paroxysmal atrial fibrillation
CPT/HCPCS: 93458; C9600

== ENCOUNTER 2018-11-19 10:44 | Observation (INO) | payer MEDICARE, OTHER ==
[~2018-11-19] VITALS: Ht 165.1 cm; Wt 77.3 kg
[~2018-11-19 10:44] MED LIST changes: +PRALUENT P75 MG/1 ML SC; +VENTOLIN HFA18 GM INH; +ZYRTEC10 MG PO
--- NOTE | 2018-11-19 11:28 | NUR ---
NTG TABS X 3 GIVEN. PAIN BEFORE THE NTG WAS 10/10. AFTER THE NTG PAIN IS NOW 6/10.
[2018-11-19 12:23] VITALS: BP 93/54
[2018-11-19 12:45] VITALS: BP 151/54
[2018-11-19 13:01] VITALS: BP 160/63
[2018-11-19 14:07] LABS: BASOPHILS 0.4 % (0-2); EOSINOPHILS 3.6 % (0-7); HEMATOCRIT 33.8 % (36.0-48.0); HEMOGLOBIN 11.2 g/dL (12-16); IMMATURE GRANULOCYTES 0.1 % (0-5); LYMPHOCYTES 21.3 % (15-50); MCH 28.5 pg (26.0-34.0); MCHC 33.1 g/dL (31.0-37.0); MEAN PLATELET VOLUME 9.9 fL (7.4-10.4); MONOCYTES 10.6 % (2-11); PLATELET COUNT 310 10x3/uL (130-400); RBC 3.93 10x6/uL (4.00-5.40); RDW 14.2 % (11.5-14.5); WBC 7.6 10x3/uL (4.8-10.8)
--- NOTE | 2018-11-19 14:15 | NUR ---
RECEIVED PT TO ROOM 2122 VIA WHEELCHAIR, PT A/O X4, RESP EVEN AND NONLABORED ON 2L. PT RATES PAIN LEVEL OF 4/10 TO BACK AND CHEST. LT AC INFUSING NS AT 50CC/HR. ORIENTED PT TO ROOM AND CALL LIGHT. RATIONAL FOR SCDS EXPLAINED TO PT. PT REFUSED TO WEAR SCDS AT THIS TIME. WILL ASSESS PT AND START PLAN OF CARE.
[2018-11-19 14:25] LABS: ALBUMIN 3.5 g/dL (3.4-5.0); ALKALINE PHOSPHATASE 59 U/L (46-116); ALT (SGPT) 27 U/L (10-68); BILIRUBIN - TOTAL 0.56 mg/dL (0.2-1.3); CALC OSMOLALITY 279 mosm/kg (275-300); CALCIUM 8.6 mg/dL (8.5-10.1); CARBON DIOXIDE 25.8 mmol/L (21.0-32.0); CHLORIDE - SERUM 103 mmol/L (98-107); CREATININE - SERUM 0.6 mg/dL (0.6-1.3); GLUCOSE 120 mg/dL (74-106); POTASSIUM - SERUM 3.9 mmol/L (3.5-5.1); PROTEIN - SERUM 6.6 g/dL (6.4-8.2); SODIUM 140 mmol/L (136-145); UREA NITROGEN 13 mg/dL (7-18); eGFR NON AFRICAN AMERICAN > 90 mL/min (90-120)
[2018-11-19 14:26] VITALS: BP 157/71; Ht 165.1 cm; Wt 77.3 kg
[2018-11-19 14:41] LABS: CKMB 1.8 U/L (0.0-3.6); CREATINE KINASE 54 UL (21-215); TROPONIN-I < 0.017 ng/mL (0.000-0.060)
[2018-11-19] MEDS ORDERED: FISH OIL 1,0001 CA1 PO (16:15)
[2018-11-19] MEDS ORDERED: PROCARDIA10 MG PO (16:15)
[2018-11-19] MEDS ORDERED: LIORESAL 10 MG10 MG PO (16:15)
[2018-11-19] MEDS ORDERED: PROBIOTIC250 MG PO (16:16)
--- NOTE | 2018-11-19 17:22 | NUR ---
GI COCKTAIL GIVEN AT THIS TIME. PT RATES PAIN LEVEL OF 5/10. DENIES ANY NEEDS AT THIS TIME. CALL LIGHT IN REACH, NAD NOTED, WILL CONTINUE TO MONITOR.
--- NOTE | 2018-11-19 18:20 | NUR ---
GAVE 2MG OF MORPHINE FOR PAIN LEVEL OF 6/10. PT DENIES ANY OTHER NEEDS AT THIS TIME. CALL LIGHT IN REACH.
[2018-11-19 19:55] VITALS: BP 190/84
--- NOTE | 2018-11-19 20:00 | NUR ---
PT RESTING IN BED. IV HAD BEEN BEEPING FOR LOW BATTERY AND THAT IS NOW CORRECTED. PT IS ALERT/ORIENTED. NS @ 50ML/HR INFUSING TO LEFT A/C. SB PER TELEMETRY. O2 @ 2L/NC WITH NONLABORED RESPIRATIONS. MONITOR AND CPOC.
[2018-11-19 23:55] VITALS: BP 160/55
--- NOTE | 2018-11-20 01:00 | NUR ---
RESTING IN BED WITH NO DISTRESS. MONITOR AND CPOC.
--- NOTE | 2018-11-20 01:25 | NUR ---
AWAKE. C/O PAIN TO RIGHT LOWER ARM/ELBOW, RIGHT SHOULDER BLADE, AND UNDER HER LEFT BREAST. MEDICATED WTIH MORHPINE 2MG SIVP. MONITOR AND CPOC.
--- NOTE | 2018-11-20 01:58 | NUR ---
PT NOW RESTING WITH EYES CLOSED. NO FURTHER SIGNS OF DISCOMFORT. MONITOR AND CPOC.
[2018-11-20 03:56] VITALS: BP 131/57
[2018-11-20 05:33] LABS: BASOPHILS 0.3 % (0-2); EOSINOPHILS 3.5 % (0-7); HEMATOCRIT 33.7 % (36.0-48.0); HEMOGLOBIN 11.1 g/dL (12-16); IMMATURE GRANULOCYTES 0.1 % (0-5); LYMPHOCYTES 25.8 % (15-50); MCH 28.3 pg (26.0-34.0); MCHC 32.9 g/dL (31.0-37.0); MEAN PLATELET VOLUME 9.9 fL (7.4-10.4); MONOCYTES 8.8 % (2-11); NEUTROPHILS 61.5 % (40-80); PLATELET COUNT 302 10x3/uL (130-400); RBC 3.92 10x6/uL (4.00-5.40); RDW 14.3 % (11.5-14.5); WBC 7.4 10x3/uL (4.8-10.8)
--- NOTE | 2018-11-20 05:44 | NUR ---
PT HAS RESTED SINCE RECIEVING THE IV MORPHINE AND VOICED NO OTHER PAIN OR DISCOMFORT. MONITOR AND CPOC.
[2018-11-20 05:47] LABS: CALC OSMOLALITY 281 mosm/kg (275-300); CALCIUM 8.5 mg/dL (8.5-10.1); CARBON DIOXIDE 23.5 mmol/L (21.0-32.0); CHLORIDE - SERUM 105 mmol/L (98-107); CREATININE - SERUM 0.7 mg/dL (0.6-1.3); GLUCOSE 144 mg/dL (74-106); SODIUM 140 mmol/L (136-145); UREA NITROGEN 13 mg/dL (7-18); eGFR NON AFRICAN AMERICAN 86 mL/min (90-120)
--- NOTE | 2018-11-20 07:15 | NUR ---
PT IN BED, A/O X4, RESP EVEN AND NONLABORED ON 2L. LT AC INFUSING NS AT 50CC/HR. PT RATES PAIN LEVEL OF 4/10. DENIES ANY NEEDS AT THIS TIME. CALL LIGHT IN REACH,NAD NOTED, WILL CONTINUE PLAN OF CARE.
[2018-11-20 08:24] LABS: BILIRUBIN - TOTAL 0.44 mg/dL (0.2-1.3)
[2018-11-20 08:28] VITALS: BP 139/86
--- NOTE | 2018-11-20 08:30 | NUR ---
OK WITH DR. ORTIZ TO START HOME MEDICATIONS. PT NPO AT THIS TIME. FOR ULTRASOUND.
[2018-11-20] MEDS ORDERED: PROPRANOLOL HCL20 MG PO (09:42)
--- NOTE | 2018-11-20 09:52 | NUR ---
AM MEDS GIVEN AT THIS TIME. PT ALREADY HAD ULTRASOUND, ASKING FOR BREAKFAST TRAY, INFORMED PT THAT I ALREADY CALLED DIETARY TO BRING UP A TRAY FOR HER. PT DENIES ANY OTHER NEEDS AT THIS TIME. CALL LIGHT IN REACH,NAD NOTED, WILL CONTINUE TO MONITOR.
[2018-11-20 12:10] VITALS: BP 147/45
--- NOTE | 2018-11-20 13:32 | NUR ---
PT RESTING COMFORTABLY IN BED, FIXED HEART MONITOR. PT DENIES ANY NEEDS AT THIS TIME, CALL LIGHT IN REACH, NAD NOTED, WILL CONITNUE TO MONITOR.
[2018-11-20 16:55] VITALS: BP 165/53
[2018-11-20 19:50] VITALS: BP 160/48
--- NOTE | 2018-11-20 20:00 | NUR ---
INITIAL ROUNDS AND ASSESSMENT COMPLETED. IVF HAVE BEEN SALINE LOCKED SO THAT PT CAN AMBULATE AND SHE IS DRINKING PLENTY OF FLUIDS. DENIES PAIN OR DISCOMFORT AT THIS TIME AND VOICES THAT SHE HOPES SHE GETS TO GO HOME TOMORROW. MONITOR AND CPOC.
[2018-11-20 23:52] VITALS: BP 167/53
[2018-11-21 03:45] VITALS: BP 163/59
--- NOTE | 2018-11-21 05:00 | NUR ---
PT HAS RESTED WELL THIS NIGHT. NO DISTRESS. SHE HAS VOICED NOT NEEDS. CONTINUING TO DRINK FLUIDS. PIV SALINE LOCKED. MONITOR AND CPOC.
[2018-11-21 08:44] VITALS: BP 163/49
[2018-11-21 12:02] VITALS: BP 119/50
--- NOTE | 2018-11-21 12:30 | NUR ---
IV AND TELEMETRY DCD. DC PLANS GIVEN. UNDERSTANDING VOICED. ESCORTED TO CAR BY W/C.
--- NOTE | 2018-11-23 09:57 | MORECARE ---
CASE MANAGEMENT DISCHARGE SUMMARY PATIENT: NURIA BARAJAS UNIT: [id number] ADM DATE: 11/19/18 AGE: 73 : 43 SEX: F ROOM/BED: D.2122 AUTHOR: TYLOR BAILEY PHYSICIAN: REFERRING PHYSICIAN: TORSTEN ORTIZ M.D. DATE OF SERVICE: 11/23/18 Discharge Plan Patient Name: NURIA BARAJAS Facility: [facility]:[place] : 1945 Planned Disposition: Home Anticipated Discharge Date: 11/21/18 Discharge Date: 11/21/2018 Expected LOS: 2 Initial Reviewer: [email or web address] Initial Review Date: 11/23/2018 Generated: 11/23/18 10:56 am Patient Name: NURIA BARAJAS Page 44843 at 0957 All edits/amendments must be made on the electronic document DICTATION DATE: 11/23/18955 BUS WASHER: ANDREAS 11/23/1856 RPT#: [id number] DC DATE:11/21/18 STATUS: DIS IN [facility] [address] [place] [address] END OF REPORT
== END 2018-11-21 12:45 | disposition home or self-care (01) ==
LOC: D.ER 10:44 → OBSVTIME 13:21 → D.EDHOLD 13:21 → D.M2 13:21
PROVIDERS: Family Medicine; ADMIT Internal Medicine Cardiovascular Disease
DX: R07.9 Chest pain, unspecified (principal); I10 Essential (primary) hypertension; I25.10 Atherosclerotic heart disease of native coronary artery without angina pectoris; Z86.73 Personal history of transient ischemic attack (TIA), and cerebral infarction without residual deficits; E11.9 Type 2 diabetes mellitus without complications; J44.9 Chronic obstructive pulmonary disease, unspecified; K21.9 Gastro-esophageal reflux disease without esophagitis; I48.0 Paroxysmal atrial fibrillation

== ENCOUNTER 2018-12-03 01:14 | Observation (INO) | payer MEDICARE, OTHER ==
[2018-12-03] VITALS (10 sets, daily range): BP systolic 117–160; BP diastolic 40–93; Ht 165.1 cm; Wt 75.6 kg
[~2018-12-03] VITALS: Ht 165.1 cm; Wt 75.6 kg
--- NOTE | ~2018-12-03 | CN ---
PATIENT NAME:NURIA BARAJAS MEDICAL RECORD: [id number] : 41 LOCATION:D. D.2126 ADMIT DATE: 12/03/18 ACCOUNT: [id number] CONSULTING PHYSICIAN: JASON TORIBIO MD REFERRING PHYSICIAN: TORSTEN HIDALGO MD DATE OF CONSULTATION: 12/03/2018 HISTORY OF PRESENT ILLNESS: A 73-year-old female with a cardiovascular history, has a history of atrial fibrillation approximately 1 year ago, has a history of stent to the LAD in 2018, recently treated for upper respiratory tract sinusitis. Received steroids, this is the fourth day. Had sudden onset, awoken from sleep with heart racing and pounding. Presented to the ER, spontaneously converted. She has a history of atrial fibrillation in the past by her report. She also had some bradycardia. No angina with this current atrial fibrillation. We are asked to see her concerning her cardiovascular status. PAST MEDICAL HISTORY: Includes; 1. History of atrial fibrillation. 2. Coronary artery disease as described above. 3. Hyperlipidemia. 4. Diabetes mellitus. ALLERGIES: CONTRAST, SULFA, CODEINE, LEVAQUIN. MEDICATIONS: Typically include allopurinol 75 every day, metformin 1 gram b.i.d., insulin 11 units q.h.s., hydrocodone 10/325 t.i.d. as needed, Xanax 0.5 t.i.d. as needed, propranolol 10 every day, diltiazem 240 every day, Plavix 75 every day. SOCIAL HISTORY: Nonsmoker, nondrinker. Typically takes care of all ADLs. REVIEW OF SYSTEMS: The patient reports easy bruising but reports no swollen glands. The patient reports no fever, no night sweats, no significant weight gain, no significant weight loss. No significant exercise tolerance. The patient reports no dry eyes, no irritation, no vision change. Patient reports no difficulty hearing and no ear pain. Patient reports no frequent nose bleeds or nose and sinus problems. Patient reports on arm pain on exertion. No shortness of breath while lying down. No history of heart murmur. Patient reports no cough, no wheezing or coughing up blood. Patient reports no abdominal pain, no vomiting. Normal appetite. No diarrhea and not vomiting blood. No nausea and no constipation. Patient reports no incontinence. No difficulty urinating. No hematuria. No increased frequency. Patient reports no muscle aches. No weakness, no arthralgias, no back pain. No swelling of the extremities. Patient reports no abnormal mole, no jaundice, no rashes. Reports no loss of consciousness. No weakness and no numbness. No seizures, dizziness, or headaches. The patient reports no depression, no sleep disturbance, feeling safe in a relationship and no alcohol abuse. Patient reports on fatigue. Reports no runny nose or sinus pressure. No itching, no hives, and no frequent sneezing. PHYSICAL EXAMINATION: GENERAL: Pleasant female, in no acute distress, appears stated age. VITAL SIGNS: Blood pressure 118/70, pulse 71 and regular. HEENT: Normocephalic, atraumatic. NECK: No JVD or bruit. CONSULT REPORT [id number] NURIA BARAJAS HEART: Regular. LUNGS: Lung moreno, good air excursion. ABDOMEN: Soft, nontender. EXTREMITIES: Pulses 2+ with no edema. IMPRESSION: PAF. At this point in time with recent stent, would consider addition of NOAC, continue Plavix, and hold aspirin and check echocardiographic study. Reports some bradycardia at home. Certainly given age and history, at risk for sick sinus syndrome. Would probably benefit from 14-21 day event monitor on discharge. Further recommendations based on the above. TRANSINT:[id number] Voice Confirmation ID: [id number] DOCUMENT ID: [id number] JASON TORIBIO MD CC: [id number] DICTATION DATE: 12/03/18 0933 WASHER ENGINEER HELPER: 12/03/18 1406 ADM IN [facility] [address] [place] [id number]
--- NOTE | ~2018-12-03 | EC ---
PATIENT:NURIA BARAJAS DATE OF SERVICE: 12/03/18 SEX: F MEDICAL RECORD: [id number] DATE OF : [birth year] LOCATION:D.M2 D.212 AGE OF PATIENT: 73 ADMISSION DATE: 12/03/18 REFERRING PHYSICIAN: INTERPRETING PHYSICIAN: JASON TORIBIO MD ECHOCARDIOGRAM REPORT ECHO CHARGES 5 ECHO LIMITED Date: 12/03/18 1 DOPPLER ECHO COLOR FLOW CLINICAL DIAGNOSIS: AFIB ECHOCARDIOGRAPHIC MEASUREMENTS (adult normal given) AC root (d.<3.7cm) 0 cm LV Septum d (<1.2 cm> 0 cm Valve Excursion 0 cm LV Septum (systole) 0 cm Left Atria (s.<4.0cm> 0 cm LVPW d(<1.2cm) 0 cm RV (d.<2.3cm) 0 cm LVPW (sytole) 0 cm LV diastole(<5.6CM) 0 cm MV E-F(>70mm/sec) 0 cm LV systole 0 cm LVOT Diameter 0 cm MV exc.(>10mm) 0 cm Est.ejection fraction (50-75%) % DOPPLER: LVIT cm/sec A 0 cm/sec E 0 cm/sec LA 0 cm/sec RVSP 19.1 mmHg LVOT 0 cm/sec AOP1/2T m/s Asc. Ao 0 cm/sec RVOT 0 cm/sec RA 0 cm/sec PA 0 cm/sec AV Gradient Peak 0 mmHg AV Mean 0 mmHg AV Area 0 cm MV Gradient Peak 0 mmHg MV Mean 0 mmHg MV Area 0 cm COMMENTS: Hand Buffer: Jennifer RODRIGUEZ Optical Effects Camera Operator: 3 Dr. Echavarria TAPE# PACS Pericardial Effusion N DATE OF SERVICE: 12/03/2018 This is a limited study. Grossly, LVH appears present. LV internal dimension appears normal. Wall motion appears normal. EF is greater than or equal to 55%. Aortic valve appears tricuspid on 2-D with good valve excursion. Left atrium grossly appears normal, no more than mild MR. Right-sided chambers are grossly normal, no more than mild TR. ECHOCARDIOGRAM REPORT [id number] NURIA BARAJAS TRANSINT:[id number] Voice Confirmation ID: [id number] DOCUMENT ID: [id number] JASON TORIBIO MD CC: [id number] DICTATION DATE: 12/03/18 1218 TOOL CRIB SUPERVISOR: 12/03/18 2311 ADM IN [facility] [address] [facility]
[~2018-12-03 01:14] MED LIST changes: +LIORESAL 10 MG10 MG PO; +PROBIOTIC250 MG PO; +PROCARDIA10 MG PO; +PROPRANOLOL HCL20 MG PO
[2018-12-03 01:56] LABS: BASOPHILS 0.2 % (0-2); EOSINOPHILS 0.1 % (0-7); HEMATOCRIT 35.4 % (36.0-48.0); HEMOGLOBIN 11.8 g/dL (12-16); IMMATURE GRANULOCYTES 0.6 % (0-5); LYMPHOCYTES 11.2 % (15-50); MCH 28.2 pg (26.0-34.0); MCHC 33.3 g/dL (31.0-37.0); MCV 84.5 fL (80.0-100.0); MEAN PLATELET VOLUME 9.6 fL (7.4-10.4); MONOCYTES 4.3 % (2-11); NEUTROPHILS 83.6 % (40-80); RBC 4.19 10x6/uL (4.00-5.40); RDW 13.6 % (11.5-14.5); WBC 12.3 10x3/uL (4.8-10.8)
[2018-12-03 02:00] LABS: PLATELET COUNT 395 10x3/uL (130-400)
[2018-12-03 02:06] LABS: APTT 25.4 SECONDS (22.8-39.4); INR 1.02 (0.85-1.17); PROTIME 12.9 SECONDS (11.6-15.0)
[2018-12-03 02:07] LABS: APPEARANCE CLEAR (CLEAR); BILIRUBIN NEGATIVE (NEGATIVE); COLOR YELLOW (YELLOW); GLUCOSE 500 mg/dL (NEGATIVE); KETONE NEGATIVE (NEGATIVE); NITRITE NEGATIVE (NEGATIVE); PROTEIN NEGATIVE (NEGATIVE); UROBILINOGEN NORMAL (NORMAL)
[2018-12-03 02:22] LABS: ALBUMIN 3.6 g/dL (3.4-5.0); ALKALINE PHOSPHATASE 85 U/L (46-116); ALT (SGPT) 23 U/L (10-68); CALC OSMOLALITY 288 mosm/kg (275-300); CARBON DIOXIDE 24.6 mmol/L (21.0-32.0); CHLORIDE - SERUM 101 mmol/L (98-107); CREATININE - SERUM 0.6 mg/dL (0.6-1.3); POTASSIUM - SERUM 3.8 mmol/L (3.5-5.1); PROTEIN - SERUM 7.6 g/dL (6.4-8.2); SODIUM 139 mmol/L (136-145); UREA NITROGEN 17 mg/dL (7-18); eGFR NON AFRICAN AMERICAN > 90 mL/min (90-120)
[2018-12-03 02:23] LABS: GLUCOSE 257 mg/dL (74-106)
[2018-12-03 02:35] LABS: CKMB 2.2 U/L (0.0-3.6); CREATINE KINASE 45 UL (21-215); MAGNESIUM - SERUM 1.6 mg/dL (1.8-2.4); TROPONIN-I < 0.017 ng/mL (0.000-0.060)
--- NOTE | 2018-12-03 04:10 | NUR ---
PATIENT ARRIVED TO FLOOR VIA WHEEL CHAIR. PATIENT IS ALERT AND ORIENTED. RESPIRATIONS ARE EVEN AND UNLABORED. NO S/S OF DISTRESS. NO C/O PAIN. CALL LIGHT WITHIN REACH. WILL CPOC.
[2018-12-03 06:14] LABS: CREATINE KINASE 39 UL (21-215); TROPONIN-I 0.036 ng/mL (0.000-0.060)
--- NOTE | 2018-12-03 08:00 | NUR ---
RESUMING PT CARE, PT IS ALERT AND ORIENTED X3, CALL LIGHT IN REACH, WILL CONTINUE TO MONITOR AND FOLLOW PLAN OF CARE.
[2018-12-03 09:53] LABS: CREATINE KINASE 29 UL (21-215)
--- NOTE | 2018-12-03 11:44 | HP ---
PATIENT: NURIA BARAJAS MEDICAL RECORD: [id number] ACCOUNT: [id number] LOCATION:[address] : [birth year] ADMISSION DATE: 12/03/18 PCP: KIA PINON HISTORY AND PHYSICAL EXAMINATION REASON FOR ADMISSION: Fast heart rates. HISTORY OF PRESENT ILLNESS: The patient is a 73-year-old female with history of chronic atrial fibrillation. She states that she was feeling well until about 4 days ago[address] She saw Dr. Pinon for sinusitis and allergy symptoms. She was placed on oral antibiotic and Medrol Dosepak with improvement in her symptoms. She states she is on her fourth day of Medrol Dosepak. Last night, she was awakened at 11:38 by fast heart rates. It was in the 140 range on her pulse oximeter. It did not improve, and for that reason, came to the Emergency Room. She was mildly short of breath, but denies any chest pain. In the ED, her rate was over 150 beats and irregular, but she spontaneously converted. She now feels improved without symptoms and again denies chest pain. The patient underwent a PTCA of her LAD on 10/03/[address] Aguilera. Coronary angiography at that time showed a 90% LAD that was successfully stented. Stable stents in the left circumflex that were patent. Right coronary showed moderate irregularities with no flow-limiting stenosis. Left main showed no disease. She states she has had no exertional chest pain recently. She is not, however, anticoagulated for chronic AFib. She says she has been told by Dr. Aguilera in the past that she might require a pacemaker at some point. PAST MEDICAL HISTORY: History of unstable angina with CAD as mentioned above, hypertension, hyperlipidemia, and cholelithiasis that is mildly symptomatic. She has not had recent PIPIDA, but had a normal PIPIDA in 2013. AODM, postmenopausal status, history of esophageal spasm, history of recurrent UTI, panic attacks, and GERD. PAST SURGICAL HISTORY: MARISA-BSO, PTCA times 3, lumpectomy of the right breast that was benign, and bladder repair times 2. ALLERGIES: ADHESIVES, CODEINE, LEVAQUIN, SULFA, AND IODINE. FAMILY HISTORY: Positive for CAD in both parents. Father was alcoholic and of ruptured peptic ulcer. Also history of colon cancer in the family. SOCIAL HISTORY: She does not use alcohol or smoke cigarettes. REVIEW OF SYSTEMS: GENERAL: She has felt well. HEENT: No recent visual change. She had some sinus congestion recently that is improving. RESPIRATORY: She has shortness of breath with fast heart rate, but otherwise has been stable. No recent cough or sputum production. CARDIAC: Rapid heart rate last night that has now resolved. It was not associated with chest pain, but mild dyspnea. Denies increasing peripheral edema. GASTROINTESTINAL: She has intermittent fatty food intolerance, but no postprandial diarrhea. She has known gallstones without recent PIPIDA scan. INTEGUMENT: No recent rash or itching. GENITOURINARY: She has mild stress incontinence. No dysuria. GYNECOLOGIC: No recent vaginal bleeding. She is postmenopausal and HISTORY AND PHYSICAL [id number] NURIA BARAJAS posthysterectomy. MUSCULOSKELETAL: She has arthralgias in lumbar spine and knees, but no sciatica. PSYCHIATRIC: Denies depressed mood. NEUROLOGIC: No history of stroke, TIA, or vascular headaches. INTEGUMENT: No rash or itching. PHYSICAL EXAMINATION: VITAL SIGNS: Heart rate was initially 150, is now 68 and irregular; respirations are 20; and blood pressure 137/76 with sat of 95% on room air. GENERAL: The patient is alert and oriented. HEENT: Eyes are clear. NECK: No bruits appreciated. CHEST: Distant breath sounds without wheezes or rales. HEART: Regular rate without gallop. ABDOMEN: Soft and nontender. No organomegaly. No right upper quadrant pain. PELVIC: Deferred. EXTREMITIES: Pretibial edema 1+. INTEGUMENT: No rash or petechia appreciated. DIAGNOSTIC DATA: Chest x-ray shows no acute cardiopulmonary disease. LABORATORY DATA: White count is 12,000, H&H is 11 and 35.4 respectively. BMP is normal except for blood sugar of 257. Magnesium is low at 1.6. Bili indirect is 0.5. Liver functions otherwise are normal. Troponin is 0.036. ProBNP is 59. Cholesterol is 119. Initial EKG showed uncontrolled AFib with rapid ventricular response of 152 beats per minute and poor anterior R waves, suggesting remote septal infarct. ASSESSMENT: 1. Paroxysmal atrial fibrillation with episode of rapid ventricular response, converting spontaneously. 2. Stable coronary artery disease by history. 3. AODM. 4. Cholelithiasis, minimally symptomatic. 5. Hypertension. PLAN: The patient will be monitored with telemetry and serial cardiac enzymes. I have discussed the patient with Dr. Echavarria as well. We will need to decide on long-term anticoagulation for this patient's chronic AFib. If she develops more dyspepsia, we will check PIPIDA scan either in or outpatient. TRANSINT:[id number] Voice Confirmation ID: [id number] DOCUMENT ID: [id number] HISTORY AND PHYSICAL [id number] NURIA BARAJAS TIMOTHY MD at 1144 CC: [id number] DICTATION DATE: 12/03/18 0837 REMOTE SENSING ENGINEER: 12/03/18 1121 ADM IN [place] [address] [place] [address]
--- NOTE | 2018-12-03 12:48 | NUR ---
I have reviewed this patient and I concur with the Shift Assessment completed by the Licensed Practical Nurse today this shift.
[2018-12-03 16:49] LABS: CKMB 1.6 U/L (0.0-3.6); CREATINE KINASE 27 UL (21-215)
[2018-12-03 17:22] LABS: TROPONIN-I 0.062 ng/mL (0.000-0.060)
--- NOTE | 2018-12-03 19:35 | NUR ---
EVENING ROUNDS COMPLETED. REPORT RECEIVED. PT SITTING UP IN BED WITH EYES OPEN, RR EVEN AND UNLABORED. BED IN LOW POSITION. NO S/S OF DISTRESS. INTRODUCED SELF TO PT. PT DENIES FURTHER NEEDS AT THIS TIME. CALL LIGHT IN REACH. WILL CTM.
--- NOTE | 2018-12-04 02:03 | NUR ---
PT LYING IN BED WITH EYES CLOSED, RR EVEN AND UNLABORED. BED IN LOW POSITION. NO S/S OF DISTRESS NOTED. 70 SINUS WITH FIRST DEGREE BUNDLE BRANCH NOTED. CALL LIGHT IN REACH. WILL CTM.
[2018-12-04 03:53] VITALS: BP 159/65
--- NOTE | 2018-12-04 05:00 | NUR ---
ASSESSMENT REVIEWED AND IN AGREEMENT. PT RESTING WITH NO DISTRESS. MONITOR AND CPOC.
[2018-12-04 05:38] LABS: BASOPHILS 0.2 % (0-2); EOSINOPHILS 1.3 % (0-7); HEMATOCRIT 30.1 % (36.0-48.0); HEMOGLOBIN 9.8 g/dL (12-16); IMMATURE GRANULOCYTES 0.2 % (0-5); LYMPHOCYTES 33.7 % (15-50); MCH 27.8 pg (26.0-34.0); MCHC 32.6 g/dL (31.0-37.0); MCV 85.3 fL (80.0-100.0); MEAN PLATELET VOLUME 9.7 fL (7.4-10.4); MONOCYTES 9.2 % (2-11); NEUTROPHILS 55.4 % (40-80); PLATELET COUNT 350 10x3/uL (130-400); RBC 3.53 10x6/uL (4.00-5.40); RDW 13.8 % (11.5-14.5); WBC 10.1 10x3/uL (4.8-10.8)
[2018-12-04 05:55] LABS: ALBUMIN 2.8 g/dL (3.4-5.0); ALKALINE PHOSPHATASE 51 U/L (46-116); ALT (SGPT) 26 U/L (10-68); BILIRUBIN - TOTAL 0.19 mg/dL (0.2-1.3); CALCIUM 8.5 mg/dL (8.5-10.1); CARBON DIOXIDE 28.1 mmol/L (21.0-32.0); CHLORIDE - SERUM 105 mmol/L (98-107); CREATININE - SERUM 0.7 mg/dL (0.6-1.3); POTASSIUM - SERUM 3.6 mmol/L (3.5-5.1); PROTEIN - SERUM 5.8 g/dL (6.4-8.2); SODIUM 138 mmol/L (136-145); T4 THYROXIN - FREE 1.03 ng/dL (0.76-1.46); UREA NITROGEN 19 mg/dL (7-18); eGFR NON AFRICAN AMERICAN 86 mL/min (90-120)
[2018-12-04 05:58] LABS: CALC OSMOLALITY 279 mosm/kg (275-300); GLUCOSE 133 mg/dL (74-106)
--- NOTE | 2018-12-04 06:30 | NUR ---
PT LYING IN BED WITH EYES CLOSED, RR EVEN AND UNLABORED. BED IN LOW POSITION. NO S/S OF DISTRESS. CALL LIGHT IN REACH. WILL CTM.
[2018-12-04 09:41] VITALS: BP 153/72
[2018-12-04 11:45] VITALS: BP 141/79
--- NOTE | 2018-12-04 13:57 | NUR ---
ALERT AND ORIENTED X4. SITTING UP IN BED. DISCHARGE INSTRUCTIONS GIVEN VERBALLY AND WRITTEN. DISCHARGE SIGNED ON CHART. DC LT FA IV TIP INTACT. ESCROT TO RIDE VIA WHEELCHAIR. REMAINS FREE FROM INJURY.
--- NOTE | 2018-12-05 09:56 | MORECARE ---
CASE MANAGEMENT DISCHARGE SUMMARY PATIENT: NURIA BARAJAS UNIT: [id number] ADM DATE: 12/03/18 AGE: 73 : 43 SEX: F ROOM/BED: D.1866 AUTHOR: TYLOR BAILEY PHYSICIAN: REFERRING PHYSICIAN: TORSTEN HIDALGO MD DATE OF SERVICE: 12/05/18 Discharge Plan Patient Name: NURIA BARAJAS [facility] [facility] 1945 Planned Disposition: Home Anticipated Discharge Date: 12/04/18 Discharge Date: 12/04/2018 Expected LOS: 1 Initial Reviewer: [email or web address] Initial Review Date: 12/05/2018 Generated: 12/05/18 10:55 am Patient Name: NURIA BARAJAS Page 08425 at 0956 All edits/amendments must be made on the electronic document DICTATION DATE: 12/05/1855 DIAMOND SETTER APPRENTICE: ANDREAS 12/05/18 0955 RPT#: [id number] DC DATE:12/04/18 STATUS: DIS IN [facility] [address] [place] [place] [address] END OF REPORT
== END 2018-12-04 13:59 | disposition home or self-care (01) ==
LOC: D.ER 01:14 → D.EDHOLD 03:12 → OBSVTIME 03:12 → D.M2 03:36
PROVIDERS: Family Medicine; ADMIT Family Medicine; ATTEND Family Medicine
DX: I48.0 Paroxysmal atrial fibrillation (principal); R00.0 Tachycardia, unspecified; I25.10 Atherosclerotic heart disease of native coronary artery without angina pectoris; E11.9 Type 2 diabetes mellitus without complications; I10 Essential (primary) hypertension; K80.20 Calculus of gallbladder without cholecystitis without obstruction

== ENCOUNTER 2019-08-14 10:35 | Day surgery (SDC) | payer MEDICARE, OTHER ==
[~2019-08-14] VITALS: Ht 165.1 cm; Wt 75.0 kg
[2019-08-14] MEDS ORDERED: HYDROCODONE-A1 UDTA2 PO (11:24)
[2019-08-14] MEDS ORDERED: PROTONIX40 MG PO (11:25)
[2019-08-14] MEDS ORDERED: GABAPENTIN100 MG PO (11:25)
[2019-08-14 11:31] LABS: CALC OSMOLALITY 289 mosm/kg (275-300); CALCIUM 9.5 mg/dL (8.5-10.1); CARBON DIOXIDE 27.8 mmol/L (21.0-32.0); CHLORIDE - SERUM 106 mmol/L (98-107); CREATININE - SERUM 0.7 mg/dL (0.6-1.3); GLUCOSE 144 mg/dL (74-106); POTASSIUM - SERUM 4.3 mmol/L (3.5-5.1); SODIUM 144 mmol/L (136-145); UREA NITROGEN 12 mg/dL (7-18); eGFR NON AFRICAN AMERICAN 86 mL/min (90-120)
[2019-08-14 11:35] VITALS: Ht 165.1 cm; Wt 75.0 kg
[2019-08-14 11:40] LABS: INR 1.16 (0.85-1.17); PROTIME 14.3 SECONDS (11.6-15.0)
[2019-08-14 12:30] LABS: HEMATOCRIT 35.3 % (36.0-48.0); HEMOGLOBIN 11.5 g/dL (12-16); MCH 27.8 pg (26.0-34.0); MCHC 32.6 g/dL (31.0-37.0); MCV 85.5 fL (80.0-100.0); MEAN PLATELET VOLUME 9.6 fL (7.4-10.4); RBC 4.13 10x6/uL (4.00-5.40); RDW 14.4 % (11.5-14.5); WBC 6.4 10x3/uL (4.8-10.8)
--- NOTE | 2019-08-14 14:04 | NUR ---
1341 IV DC'D. CATHETER TIP INTACT. PRESSURE HELD FOR 2 MINUTES UNTIL BLEEDING STOPPED. BANDAID APPLIED.
--- NOTE | 2019-08-14 16:06 | OP ---
PATIENT NAME: NURIA BARAJAS MEDICAL RECORD: [id number] :41 LOCATION:[place] ADMISSION DATE: SURGEON: MARIA R VALENTINE DO DATE OF OPERATION: 08/14/2019 PROCEDURE: Colonoscopy with polypectomy. INDICATIONS FOR PROCEDURE: Family history positive for colon cancer, chronic constipation, anemia, abnormal weight loss. SCOPE: Olympus video pediatric colonoscope. MEDICATIONS: Propofol 400 mg IV per anesthesia. WITHDRAWAL TIME: 22 minutes. ESTIMATED BLOOD LOSS: Minimal. COMPLICATIONS: None. FINDINGS: Informed consent was given. The patient was made comfortable with the above medication. After reaching an adequate level of sedation by slow IV push, the patient was placed on her left side. A digital rectal examination was performed and was normal. The endoscope was then advanced under direct visualization through the rectum to the cecum, confirmed by the presence of the appendiceal orifice and ileocecal valve. The endoscope was slowly withdrawn. Mucosa was carefully examined. The prep quality was good. There were a few scattered diverticula located in the sigmoid colon. In the ascending colon, there was a single benign-appearing sessile polyp, which measured approximately 2-3 mm in diameter. It was removed using hot forceps. In the transverse colon, there were two separate benign-appearing sessile polyps, which ranged in size from 4-6 mm in diameter. They were both removed using hot snare in 1 piece and completely retrieved. Retroflexion was performed in the rectum with visualization of a normal appearing rectal wall. The endoscope was withdrawn from the patient. The patient tolerated the procedure well and there were no complications. IMPRESSION: 1. Mild diverticulosis of the sigmoid colon. 2. Few benign-appearing sessile polyps located in the ascending and transverse colon as described above. These were removed using a combination of a hot forceps and hot snare. 3. Otherwise, normal colonoscopy. PLAN AND RECOMMENDATIONS: 1. Discharge home when recovery parameters are met. 2. Follow up biopsy specimen results. 3. High fiber diet. 4. Continue current medications. 5. No further colonoscopies are necessary based on the patient's age. TRANSINT:[id number] Voice Confirmation ID: [id number] DOCUMENT ID: [id number] OPERATIVE REPORT [id number] NURIA BARAJAS MARIA R VALENTINE DO at 5808 CC: [id number] DICTATION DATE: 08/14/19 1332 AUTOMOTIVE ACCESSORY INSTALLER: 08/14/19 1345 [facility] 08/14/19 [place] [id number] [place] [id number]
== END 2019-08-14 14:19 | disposition home or self-care (01) ==
LOC: D.OPS 10:35
PROVIDERS: Anesthesiology; ATTEND Internal Medicine Gastroenterology
DX: K63.5 Polyp of colon (principal); D64.9 Anemia, unspecified; R63.4 Abnormal weight loss; K59.09 Other constipation; Z80.0 Family history of malignant neoplasm of digestive organs; K57.90 Diverticulosis of intestine, part unspecified, without perforation or abscess without bleeding

== ENCOUNTER → 2019-12-18 12:30 | Outpatient (CLI) | payer MEDICARE, OTHER ==
[2019-08-14 11:35] VITALS: BMI 27.5
[~2019-12-18 12:30] MED LIST changes: +GABAPENTIN100 MG PO; +HYDROCODONE-A1 UDTA2 PO; +PROTONIX40 MG PO
== END | disposition home or self-care (01) ==
LOC: D.HCCARDIO 10:00
PROVIDERS: ATTEND Internal Medicine Cardiovascular Disease
DX: I25.10 Atherosclerotic heart disease of native coronary artery without angina pectoris (principal)

== ENCOUNTER 2020-01-10 08:19 | Outpatient (CLI) | payer MEDICARE, OTHER ==
[~2020-01-10] VITALS: Ht 165.1 cm; Wt 82.7 kg
--- NOTE | ~2020-01-10 | HEMODYNAMI ---
PATIENT:NURIA BARAJAS MEDICAL RECORD: [id number] : 41 LOCATION:[facility] ADMISSION DATE: 01/10/20 Generatedon:01/10/202011:44 Patient name: NURIA BARAJAS Patient #: [id number] : 1945 Date of study: 01/10/2020 Page: Of Hemodynamic Procedure Report Patient Data Patient Demographics Procedure consent was obtained First Name: NURIA Gender: Female Last Name: KARL : 1945 Middle Initial: A Age: 74 year(s) Patient #: [id number] Race: SSN: [id number] Additional ID: [id number] Contact details Address: [place] [address] State: [place] City: [place] Zip code: [address] Past Medical History Allergies Allergen Reaction Date Comments Reported Iodine 06/12/2015 Sulfa drugs 06/12/2015 Other allergy 06/12/2015 Levaquin Adhesive tape 06/12/2015 Admission Admission Data Admission Date: 01/10/2020 Admission Time: 8:19 Arrival Date: 01/10/2020 Arrival Time: 10:30 Admit Source: Other Insurance Payor: Medicare [facility] #: [id number] Height (in.): 64.96 BSA: 1.89 (m2) Height (cm.): 165 BMI: 30.12 (kg/m2) Weight (lbs.): 180.78 Weight (kg.): 82 Lab Results Lab Result Date: 01/10/2020 Lab Result Time: 0:00 Biochemistry Name Units Result Min Max BUN mg/dl 18 --(---*)-- 7 18 Creatinine mg/dl 1 --(--*-)-- 0.6 1.3 eGFR ml/min 57 *-(----)-- 90 120 NONAFRICAN CBC Name Units Result Min Max Hemoglobin g/dl 12.1 *-(----)-- 13.5 17.5 Procedure Procedure Types Cath Procedure Diagnostic Procedure [facility] w/Coronaries FFR/IVUS FFR Initial FFR Additional Sedation Charges Moderate Sedation up to 30 minutes PCI Procedure Coronary Stent Coronary Stent Initial x2 Hemochron ACT Test Procedure Description Procedure Date Procedure Date: 01/10/2020 Procedure Start Time: 11:18 Procedure End Time: 11:41 Procedure Staff Name Function Narinder Aguilera MD Performing Physician Anel Zuniga RT Monitor Ivet Reardon RT Scrub Camryn Dnoaldson RN Nurse Procedure Data Cath Procedure Fluoroscopy Diagnostic fluoroscopy Total fluoroscopy Time: 6.5 time: 6.5 min min Diagnostic fluoroscopy Total fluoroscopy dose: dose: 1410 mGy 1410 mGy Contrast Material Contrast Material Type Amount (ml) Isovue 300 122 Entry Location Entry Primary Successful Side Size Upsize Upsize Entry Closure Succes sful Closure Location (Fr) 1 (Fr) 2 (Fr) Remarks Device Remarks Femoral Right 5 Fr 6 Fr 6 Fr Exoseal artery Short Long Estimated blood loss: 5 ml Diagnostic catheters Device Type Used For End Catheter Placement MULTIPACK Pigtail 5 Fr LV Angiography catheter MULTIPACK JL 4.0 5Fr Left Coronary catheter Angiography MULTIPACK 3DRC 5Fr Right Coronary catheter Angiography Procedure Complications No complications Procedure Medications Medication Administration Route Dosage 0.9% NaCl I.V. 100 ml/hr Oxygen etCO2 Nasal cannula 2 l/min Lidocaine 2% added to field 20 Heparin Flush Bag added to field 2 bags (1000units/500ml NS) Versed I.V. 2 mg Fentanyl I.V. 50 mcg Versed I.V. 2 mg Fentanyl I.V. 50 mcg Versed I.V. 2 mg Fentanyl I.V. 50 mcg Fentanyl I.V. 50 mcg Heparin Bolus I.V. 4000 units Hemodynamics Rest BSA: 1.89 (m2) HGB: 12.1 (g/dl) O2 Consumption: Estimated: 188.42 (ml/min) O2 Co nsumption indexed: Estimated:99.69 (ml/min/m) Heart Rate: 94 (bpm) Pressure Samples Time Site Value (mmHg) Purpose Heart Use Rate(bpm) 11:19 LV 170/29,75 Snapshot 92 Snapshots Pre Cath Intra NCS Post Cath Vital Signs Time Heart Resp SPO2 etCO2 NIBP (mmHg) Rhythm Pain Sedation Rate (ipm) (%) (mmHg) Status Level (bpm) 10:49:54 98 14 99 26.1 190/109(160) NSR 0 (11) 10(A) , No pain 10:54:19 98 14 99 16.4 185/109(145) NSR 0 (11) 10(A) , No pain 10:58:35 92 14 99 31.3 171/99(147) NSR 0 (11) 10(A) , No pain 11:02:53 91 12 97 0 164/98(131) NSR 0 (11) 10(A) , No pain 11:07:09 90 12 96 18.6 159/101(130) NSR 0 (11) 10(A) , No pain 11:11:23 90 14 98 0 166/102(137) NSR 0 (11) 10(A) , No pain 11:15:39 88 11 97 23.1 156/86(124) NSR 0 (11) 10(A) , No pain 11:20:38 89 12 98 2.9 Measuring NSR 0 (11) 10(A) , No pain 11:21:06 88 12 98 0 160/89(133) NSR 0 (11) 10(A) , No pain 11:25:29 93 14 98 18.6 171/78(145) NSR 0 (11) 10(A) , No pain 11:29:49 91 10 98 18.6 173/92(147) NSR 0 (11) 10(A) , No pain 11:34:09 88 12 97 20.1 172/93(136) NSR 0 (11) 10(A) , No pain 11:38:25 92 12 98 16.4 161/89(131) NSR 0 (11) 10(A) , No pain Medications Time Medication Route Dose Verified Delivered Reason Notes Effectiveness by by 10:48:53 0.9% NaCl I.V. 100 Narinder Camryn used for ml/hr Willy Donaldson operations and maintenance specialist 10:48:59 Oxygen etCO2 2 Narinder Camryn used for Nasal l/min Willy Donaldson procedure cannula RN 10:49:04 Lidocaine 2% added 20ml Narinder Barcenas for local to vial Willy Aguilera MD anesthetic field 10:49:07 Heparin Flush added 2 Narinder Narinder used for Bag to bags Willy Aguilera MD procedure (1000units/500ml field NS) 11:11:34 Versed I.V. 2 mg Narinder Camryn for sedation Willy Donaldson RN 11:11:38 Fentanyl I.V. 50 Narinder Camryn for sedation mcg Willy Donaldson RN 11:16:01 Fentanyl I.V. 50 Narinder Camryn for sedation mcg Willy Donaldson RN 11:16:54 Versed I.V. 2 mg Narinder Camryn for sedation Willy Donaldson RN 11:21:08 Versed I.V. 2 mg Narinder Camryn for sedation Willy Donaldson RN 11:21:11 Fentanyl I.V. 50 Narinder Camryn for sedation mcg Willy Donaldson RN 11:28:57 Fentanyl I.V. 50 Narinder Camryn for sedation mcg Willy Donaldson RN 11:32:47 Heparin Bolus I.V. 4000 Narinder Camryn for verif ied units Willy Donaldson anticoagulation with Dr. CRISTAL Aguilera Procedure Log Time Note 10:30:03 Informed consent obtained and on chart 10:30:08 Diagnostic Cath Status : Elective 10:30:43 Procedure Status Elective Heart Cath (OP). 10:30:46 Camryn Donaldson RN sent for patient. Start room use. 10:30:46 Time tracking: Regular hours (M-F 7:00 - 5:00) 10:30:50 Plan of Care:Hemodynamics will remain stable., Cardiac rhythm will remain stable., Comfort level will be maintained., Respiratory function will remain adequate., Patient/ family verbilizes understanding of procedure., Procedure tolerated without complication., Recovers from procedure without complications.. 10:32:53 Lab Result : eGFR NONAFRICAN 57 ml/min 10:32:53 Lab Result : Hemoglobin 12.1 g/dl 10:32:53 Lab Result : BUN 18 mg/dl 10:32:53 Lab Result : Creatinine 1 mg/dl 10:34:14 SCAI program not responding 10:36:44 Admit Source: Other 10:36:46 Arrival Date: 01/10/2020 10:30:00 AM 10:37:35 Insurance Payor : Medicare 10:37:46 Patient Height : 64.96 inches 10:37:50 Patient Weight : 180.78 lbs 10:39:24 3a) 45-59 Moderately reduced kidney function. 10:39:29 Maximum allowable contrast dose (3.7 X eGFR X 0.75)158 ml. 10:43:36 Patient received from Pre/Post Procedure Room to CCL 2 Alert and oriented. Tansferred to table in Supine position. 10:43:37 Warm blankets applied, and julia hugger turned on for patient comfort. 10:43:37 Correct patient and procedure confirmed by team. 10:43:38 ECG and BP/O2 sat monitors applied to patient. 10:48:47 Vital chart was started 10:48:53 0.9% NaCl 100 ml/hr I.V. was administered by Camryn Donaldson RN; used for procedure; Verbal order read back and verified. 10:48:59 Oxygen 2 l/min etCO2 Nasal cannula was administered by Camryn Donaldson RN; used for procedure; Verbal order read back and verified. 10:49:04 Lidocaine 2% 20ml vial added to field was administered by Narinder Aguilera MD; for local anesthetic; Verbal order read back and verified. 10:49:07 Heparin Flush Bag (1000units/500ml NS) 2 bags added to field was administered by Narinder Aguilera MD; used for procedure; Verbal order read back and verified. 10:55:02 Baseline sample Acquired. 10:55:07 Rhythm: sinus tachycardia 10:55:08 Full Disclosure recording started 10:55:12 H&P Date Dictated: 01/10/2020 Within 30 days and on chart., H&P Addendum completed by physician on day of procedure. (MUST COMPLETE FOR ALL OUTPATIENTS). 10:55:13 Pre-procedure instructions explained to patient. 10:55:14 Pre-op teaching completed and patient verbalized understanding. 10:55:16 Family in patients room. 10:55:17 Patient NPO since Midnight. 10:55:20 Is the patient allergic to Iodine/contrast media? Yes. 10:55:28 Was the patient premedicated? Yes 10:55:30 Is patient on blood thinner?Yes 10:55:32 ACC The patient was administered the following blood thiners within the last 24 hours: ACCPlavix 10:55:34 Patient diabetic? Yes. 10:55:35 If diabetic: On Metformin? Yes 10:55:38 If on Metformin: Last Dose? 01/08/2020 10:55:43 Previous problem with sedation/anesthesia? No ? 10:55:44 Snore? Yes 10:55:45 Sleep apnea? No 10:55:46 Deviated septum? No 10:55:47 Opens mouth fully? Yes 10:55:48 Sticks out tongue? Yes 10:55:54 Airway obstruction? Yes COPD ASTHMA 10:55:57 Dentures? No ? 10:56:01 Pre procedure: right dorsailis pedis pulse 2+ Normal; easily identifiable; not easily obliterated 10:56:03 Pre procedure: left dorsailis pedis pulse 2+ Normal; easily identifiable; not easily obliterated 10:56:05 Patient pain scale 0/10 ?. 10:56:09 IV patent on arrival in left forearm with 0.9% NaCl at [facility]. 10:56:11 Lab results completed and on chart. 10:58:51 Stress Test: yes; abnormal anterior lateral apical 10:58:56 Right groin area was prepped with chlora-prep and draped in sterile fashion 10:58:57 Alarms reviewed by R. N. 10:58:57 Sharps counted by scrub and verified by R.N. 11:11:15 Physician arrived 11:11:15 --------ALL STOP TIME OUT------ 11:11:16 Final Timeout: patient, procedure, and site verified with staff and physician. All members of the team are in agreement. 11:11:17 Right groin site verified by team. 11:11:20 Fire Safety Assessment: A--An alcohol-based skin anteseptic being used preoperatively., C--Open oxygen or nitrous oxide is being used., D--An ESU, laser, or fiber-optic light is being used. 11:11:23 Physical assessment completed. ASA score P 2 - A patient with mild systemic disease as per Narinder Aguilera MD. 11:11:27 Sedation plan: IV Moderate Sedation Medication:Versed, Fentanyl 11:11:32 Use device set Femoral Dx 11:11:33 ACIST Syringe (11499) opened to sterile field. 11:11:33 Bag Decanter (2002) opened to sterile field. 11:11:34 Versed 2 mg I.V. was administered by Camryn Donaldson RN; for sedation; Verbal order read back and verified. 11:11:34 Medline Cath Pack ([id number]) opened to sterile field. 11:11:35 ACIST Hand Control (32072) opened to sterile field. 11:11:35 ACIST Manifold (76960) opened to sterile field. 11:11:35 DIAGNOSTIC Multipack 5Fr catheter set (RZ9031) opened to sterile field. 11:11:36 Tegaderm 4 x 4 (1626W) opened to sterile field. 11:11:37 SHEATH 5FR Monahans (ELV442) opened to sterile field. 11:11:38 Fentanyl 50 mcg I.V. was administered by Camryn Donaldson RN; for sedation; Verbal order read back and verified. 11:11:38 EMERALD Guide Wire (396-612) opened to sterile field. 11:16:01 Fentanyl 50 mcg I.V. was administered by Camryn Donaldson RN; for sedation; Verbal order read back and verified. 11:16:54 Versed 2 mg I.V. was administered by Camryn Donaldson RN; for sedation; Verbal order read back and verified. 11:18:05 Procedure started. 11:18:09 Local anesthetic to right femoral artery with Lidocaine 2% by Narinder Aguilera MD.INITIAL ACCESS ONLY 11:18:20 A 5 Fr sheath was inserted into the Right Femoral artery 11:19:04 A MULTIPACK Pigtail 5 Fr catheter was advanced over the wire and used for LV Angiography. 11:19:53 LV hemodynamics recorded. 11:19:54 LV gram done using DELVALLE 11:19:57 Injector settings: Ml/sec: 5, Volume: 15, 11:20:02 EF : 55 % 11:20:05 Catheter removed. 11:20:10 A MULTIPACK JL 4.0 5Fr catheter was advanced over the wire and used for Left Coronary Angiography. 11:20:48 LCA angiography performed. 11:20:53 Injector settings: Ml/sec: 3, Volume: 6, 11:21:08 Versed 2 mg I.V. was administered by Camryn Donaldson RN; for sedation; Verbal order read back and verified. 11:21:11 Fentanyl 50 mcg I.V. was administered by Camryn Donaldson RN; for sedation; Verbal order read back and verified. 11:22:38 Catheter removed. 11:22:53 SHEATH 6FR Monahans (OWD955) opened to sterile field. 11:22:54 INFLATOR Merit BasixCompak (CG9662) opened to sterile field. 11:22:55 Happy Jack Verrata Plus pressure wire (10138O) opened to sterile field. 11:23:21 A MULTIPACK 3DRC 5Fr catheter was advanced over the wire and used for Right Coronary Angiography. 11:23:25 RCA angiography performed. 11:23:27 Injector settings: Ml/sec: 3, Volume: 6, 11:24:10 GUIDE 6FR XBLAD 3.5 catheter ([id number]) opened to sterile field. 11:25:07 Catheter removed. 11:25:29 Sheath upsized to a 6 Fr Short. 11:25:52 6 Fr hs1 guide catheter was inserted over the wire 11:25:58 GUIDE 6FR HS I catheter (LA6HSI) opened to sterile field. 11:26:17 Guide catheter removed. 11:26:25 SHEATH 6FR ARROW 45cm (CL-10382) opened to sterile field. 11:26:33 Sheath upsized to a 6 Fr Long. 11:26:43 6 Fr hs 1 guide catheter was inserted over the wire 11:28:29 RCA angiography performed. 11:28:35 Injector settings: Ml/sec: 3, Volume: 6, 11:28:47 Guide catheter removed. 11:28:57 Fentanyl 50 mcg I.V. was administered by Camryn Donaldson RN; for sedation; Verbal order read back and verified. 11:29:00 6 Fr xblad 3.5 guide catheter was inserted over the wire 11:29:07 FFR/IFR wire advanced. 11:29:09 Baseline FFR 1. 11:30:16 Wire advanced across lesion. 11:32:16 mCirc lesion measured at 0.81 with IFR 11:32:47 Heparin Bolus 4000 units I.V. was administered by Camryn Donaldson RN; for anticoagulation; verified with Dr. Aguilera Verbal order read back and verified. 11:33:51 mLAD lesion measured at 0.84 with IFR 11:34:18 CHOICE PT Extra Support 182cm wire ([id number]) opened to sterile field. 11:34:57 choice pt extra support wire advanced down LCX 11:35:46 Place stent Inflation Number: 1 A SHILPA RX 3.0 x 15 stent ([id number]) was prepped and advanced across the Mid CX 70. The stent was deployed at 15 KENDRICK for 0:10 (min:sec) 0. 11:36:34 Stent catheter was removed intact over wire. 11:36:51 choice pt wire removed from LCX 11:37:35 Place stent Inflation Number: 1 A SHILPA RX 3.0 x 08 stent ([id number]) was prepped and advanced across the Prox LAD 80. The stent was deployed at 15 KENDRICK for 0:10 (min:sec) 0. 11:38:18 Stent catheter was removed intact over wire. 11:38:19 Wire removed. 11:38:19 Guide catheter removed. 11:39:00 sheath downsized to 6F short pinnacle 11:39:26 EXOSEAL 6Fr (EX600) opened to sterile field. 11:39:35 Sheath removed intact; hemostasis achieved with Exoseal to the Right Femoral artery. 11:39:37 Procedure ended.(Physican Out) 11:39:46 Fluoroscopy time 06.50 minutes. 11:39:52 Fluoroscopy dose: 1410 mGy 11:39:52 Flurop Dose total: 1410 11:39:59 Dose Area Product 15056 mGy/cm. 11:40:02 Contrast amount:Isovue 300 122ml. 11:40:08 Maximum allowable dose exceeded? No. 11:40:09 Sharps counted by scrub and verified by R.N. 11:40:10 Insertion/operative site no bleeding no hematoma. 11:40:14 Post-op/insertion site Right Femoral artery dressed using a 4 x 4 and Tegaderm. 11:40:15 Post Procedure Pulses reassessed and unchanged 11:40:17 Post procedure rhythm: unchanged. 11:40:20 Estimated blood loss: 5 ml 11:40:21 Post procedure instruction explained to patient.Patient verbalizes understanding. 11:40:22 Patient needs reinforcement of post procedure teaching. 11:40:44 Procedure type changed to Cath procedure, Diagnostic procedure, LHC, LHC w/Coronaries, FFR/IVUS, FFR Initial, FFR Additional, Sedation Charges, Moderate Sedation up to 30 minutes, PCI procedure, Coronary Stent, Coronary Stent Initial x2, Hemochron ACT Test 11:40:45 Procedure and supply charges have been captured, reviewed, submitted and are correct. 11:40:50 Procedure Complication : No complications 11:40:52 Vital chart was stopped 11:40:55 [facility] Findings: MVD- PCI performed (see procedure note) 11:40:57 Operative report dictated upon procedure completion. 11:40:57 See physician's report for complete and final results. 11:40:59 Report given to Pre/Post Procedure Room. 11:41:02 Patient transfered to Pre/Post Procedure Room with Stretcher. 11:41:05 Procedure ended. 11:41:05 Full Disclosure recording stopped 11:41:13 ACC-PCI Only Patient was given prescriptions, or instructed by Narinder Aguilera MD to start/continue the following medications upon discharge: Plavix 11:41:14 End room use (Document Last) 11:41:39 ACT drawn and resulted at 322 seconds. (normal therapeutic range 180-240 seconds). 11:41:55 End room use (Document Last) 11:43:10 End room use (Document Last) Intervention Summary Intervention Notes Time ActionType Lesion and Equipment Used Action# Pressure Duration Attributes 11:35:46 Place stent Mid CX SHILPA RX 3.0 x 1 15 00:10 15 stent ([id number]) 11:37:35 Place stent Prox LAD SHILPA RX 3.0 x 1 15 00:10 08 stent ([id number]) Device Usage Item Name Manufacture Quantity Catalog Number Hospital Part Current Minimal Lot# / Charge Number Stock Stock Serial# Code ACIST Syringe Acist 1 08576 612260 944830 874379 20 (40009) Medical Systems Inc Bag Decanter Microtek 1 2001S 534355 65483 233010 5 (2001S) Medical Inc. Medline Cath Medline 1 [id number] 089937 03739 292694 5 Pack ([id number]) ACIST Hand Acist 1 43070 823609 307402 926852 5 Control Medical (08792) Systems Inc ACIST Manifold Acist 1 72456 402979 213312 363601 5 (16988) Medical Systems Inc DIAGNOSTIC Cardinal 1 PH8843 579525 80085 987670 30 Multipack 5Fr Health catheter set (ZF3808) Tegaderm 4 x 4 3M 1 1626W 427395 159366 297022 5 (1626W) SHEATH 5FR Terumo 1 QBV976 804468 764014 294256 5 Mon[place]ans (OOS922) EMERALD Guide Cardinal 1 502-455 779205 969954 439526 5 Wire (502-455) Health MULTIPACK Cardinal 1 086810 5 Pigtail 5 Fr Health catheter MULTIPACK JL Cardinal 1 194690 5 4.0 5Fr Health catheter SHEATH 6FR Terumo 1 WVI586 494252 155120 501684 40 Mon[place]ans (QQI615) INFLATOR Merit Merit 1 NY8452 314315 942179 860049 15 BasixCompaSeekPanda Medical (GG3726) Happy Jack Happy Jack 1 48354Q 809776 479641692 069395 5 Verrata Plus pressure wire (34611H) MULTIPACK 3DRC Cardinal 1 207267 5 5Fr catheter Health GUIDE 6FR Cardinal 1 [id number] 361006 567400 728976 10 XBLAD 3.5 Health catheter ([id number]) GUIDE 6FR HS I Medtronic 1 LA6HSI 444221 77077 250501 1 catheter (LA6HSI) SHEATH 6FR Teleflex 1 CL-25861 717981 461810 904028 5 ARROW 45cm (CL-79032) CHOICE PT Llewellyn 1 [id number] 587141 640586 178393 5 Extra Support Scientific 182cm wire ([id number]) SHILPA RX 3.0 x Medtronic 1 [id number] 192605 6698663 953704 5 [id number] 15 stent ([id number]) SHILPA RX 3.0 x Medtronic 1 [id number] 397751 5043870 664623 5 [id number] 08 stent ([id number]) EXOSEAL 6Fr Cardinal 1 EX600 099423 252571 773079 10 (EX600) Health Signature Audit [place] Stage Time Signature Unsigned Intra-Procedure 01/10/2020 Anel Zuniga 11:41:55 AM RT(R) Intra-Procedure 01/10/2020 Camryn Donaldson 11:43:10 AM RN Intra-Procedure 01/10/2020 Narinder Aguilera 11:44:14 AM Signatures Performing Physician : Signature : Narinder Aguilera MD Date : Time : Monitor : Anel Efrain RT Signature : Date : Time : Nurse : Camryn Donaldson RN Signature : Date : Time : [address] [place] [address]
--- NOTE | ~2020-01-10 | OP ---
PATIENT NAME: NURIA BARAJAS MEDICAL RECORD: [id number] :41 LOCATION:D.CAT ADMISSION DATE: SURGEON: ANTONIETA GUEVARA MD DATE OF OPERATION: 01/10/2020 DATE OF SERVICE: 01/10/2020 PROCEDURES: 1. PTCA stent LAD. 2. PTCA stent left circumflex. 3. IFR LAD. 4. IFR left circumflex. 5. Left heart catheterization. 6. Selective coronary angiography. 7. Left ventriculogram. INDICATION: Angina and coronary artery disease. PROCEDURE PERFORMED: After informed consent was obtained and after a detailed explanation of risks, benefits as well as alternative therapies, the patient elected to proceed with angiogram and angioplasty. The right femoral area was prepped and draped in normal sterile fashion. Right femoral artery was cannulated via modified Seldinger technique with placement of 6-Portuguese sheath. All catheters exchanged through this sheath. FINDINGS: The left ventriculogram was performed in standard 30-degree DELVALLE view, reveals good cardiac wall motion, ejection fraction estimated at 60%. SELECTIVE CORONARY ANGIOGRAPHY: 1. Left main is with no significant angiographic disease. 2. Left anterior descending has previously placed stent that is widely patent; however, the ostium has a 70% stenosis and IFR was abnormal. 3. Left circumflex has 70% stenosis in the mid vessel. An IFR is abnormal, this as well correlate with perfusion defects on nuclear stress test. 4. The right coronary has previously placed stents, these are widely patent with no significant restenosis. No disease elsewise throughout the RCA or its branches. PTCA STENT OF THE LAD: The stent used was a 3.0 x 8 mm Myles. Result was 0% residual stenosis. PTCA STENT OF THE LEFT CIRCUMFLEX: The stent used was a 3.0 x 15 mm Myles. Result was 0% residual stenosis. OVERALL IMPRESSION: Successful percutaneous transluminal coronary angioplasty stent of the left anterior descending and circumflex, both going from 70-80% initial stenosis to 0% residual. TRANSINT:[id number] Voice Confirmation ID: [id number] DOCUMENT ID: [id number] OPERATIVE REPORT [id number] NURIA BARAJAS JEFFREY MD CC: [id number] DICTATION DATE: 01/10/20 1144 BIOMECHANICAL ENGINEER: 01/10/20 [address] [place] [address]
[2020-01-10 09:18] VITALS: BP 206/103; Ht 165.1 cm; Wt 82.7 kg
[2020-01-10 09:28] LABS: BASOPHILS 0.1 % (0-2); EOSINOPHILS 0 % (0-7); HEMATOCRIT 37.8 % (36.0-48.0); HEMOGLOBIN 12.1 g/dL (12-16); IMMATURE GRANULOCYTES 0.2 % (0-5); LYMPHOCYTES 9.8 % (15-50); MCH 27.6 pg (26.0-34.0); MCV 86.1 fL (80.0-100.0); MEAN PLATELET VOLUME 9.3 fL (7.4-10.4); NEUTROPHILS 87.9 % (40-80); PLATELET COUNT 379 10x3/uL (130-400); RBC 4.39 10x6/uL (4.00-5.40); RDW 14.1 % (11.5-14.5); WBC 12.1 10x3/uL (4.8-10.8)
[2020-01-10 09:43] LABS: CALCIUM 9.3 mg/dL (8.5-10.1); CHOL - HDL RATIO 4.4 ratio (2.3-4.1); LDL-HDL RATIO 3.2 ratio (1.5-3.5)
[2020-01-10] MEDS ORDERED: LOSARTAN-HCTZ1 EAC1 PO (09:54)
[2020-01-10] MEDS ORDERED: ELAVIL10 MG PO (09:54)
[2020-01-10] MEDS ORDERED: HYDROCODON-ACE1 EAC2 PO (09:55)
[2020-01-10] MEDS ORDERED: MECLIZINE HCL25 MG PO (09:55)
[2020-01-10] MEDS ORDERED: LISINOPRIL20 MG PO (09:56)
[2020-01-10] MEDS ORDERED: IPRATROPIUM BRO30 M1 NASAL (09:56)
--- NOTE | 2020-01-10 11:55 | NUR ---
REC'D TO ROOM 6 VIA STRETCHER FROM AMBULANCE ASSISTANT. MONITORS ESTAB. SEE ACCOUNTS PAYABLE CLERK. ALARMS ON AND C/L IN REACH.
--- NOTE | 2020-01-10 12:10 | NUR ---
DR. GUEVARA AT TO UPDATE PT. VSS. R GROIN SITE SOFT, C/D/I. R LEG/FOOT WARM WITH PALP PULSES.
--- NOTE | 2020-01-10 12:40 | NUR ---
PT ON BEDPAN - VOIDED 200ML CLEAR, YELLOW URINE. DOYLE-CARE PROVIDED. R GROIN SITE SOFT, C/D/I.
--- NOTE | 2020-01-10 12:55 | NUR ---
R GROIN SITE SOFT, NO S/S BLEEDING OR HEMATOMA. PT RESTING QUIETLY, DENIES NEEDS. ALARMS ON AND C/L IN REACH.
--- NOTE | 2020-01-10 13:15 | NUR ---
DAUGHTER UPDATED OVER PHONE, PLAN FOR PT D/C AT 9695. R GROIN SITE SOFT, NO S/S BLEEDING OR HEMATOMA.
--- NOTE | 2020-01-10 13:53 | NUR ---
R GROIN SITE SOFT, C/D/I. VSS. PT GIANLUCA NEEDS. ALARMS ON AND C/L IN REACH.
--- NOTE | 2020-01-10 14:35 | NUR ---
R GROIN SITE SOFT, C/D/I. VSS. PT DENIES PAIN OR NEEDS. C/L IN REACH.
--- NOTE | 2020-01-10 14:53 | NUR ---
R GROIN SITE SOFT, C/D/I. HOB ELEVATED, SANDWICH TRAY PROVIDED WITH ICE TEA PER PT REQUEST. DAUGHTER CALLED THE UNIT, UPDATE GIVEN. C/L IN REACH.
--- NOTE | 2020-01-10 15:30 | NUR ---
VSS. R GROIN SITE SOFT, NO S/S BLEEDING OR HEMATOMA. PIV D/C'D INTACT PT ALLOWED UP TO BR, THEN GET DRESSED.
--- NOTE | 2020-01-10 15:45 | NUR ---
ALL DISCHARGE INSTRUCTIONS REVIEWED WITH PT AT BEDSIDE AND DAUGHTER OVER PHONE. PT DISCHARGED TO PRIVATE VEHICLE WITH DAUGHTER - PT HAS ALL BELONGINGS AND PAPERWORK.
== END 2020-01-10 15:45 | disposition home or self-care (01) ==
LOC: D.CATH 08:19
PROVIDERS: ATTEND Internal Medicine Interventional Cardiology
DX: I25.119 Atherosclerotic heart disease of native coronary artery with unspecified angina pectoris (principal); R94.30 Abnormal result of cardiovascular function study, unspecified
CPT/HCPCS: 93458; 93571; 93572; C9600 ×2